=== PATIENT | female | born 1935 | race American Indian/Alaskan Native ===

== ENCOUNTER 2017-06-02 16:18 | Inpatient (IN) | payer MEDICARE ==
[2017-06-02] MEDS ORDERED: BABY ASPIRIN PO ONE (16:45)
[2017-06-02 17:47] LABS: Basophils % (Auto) 0.5 % (0.0-1.8); Eosinophils % (Auto) 0.1 % (0.0-4.3); Hematocrit 43.5 % (30.3-42.9); Mean Corpuscular HGB Conc 35 % (30-34); Mean Corpuscular Hemoglobin 32 pg (28-32); Mean Corpuscular Volume 91 fl (79-97); Platelet Count 253 K/mm3 (140-440); Red Blood Count 4.77 M/mm3 (3.65-5.03); Red Cell Distribution Width 12.5 % (13.2-15.2); White Blood Count 9.5 K/mm3 (4.5-11.0)
[2017-06-02 18:10] LABS: INR 0.95 (0.87-1.13)
[2017-06-02 18:11] LABS: Partial Thromboplastin Time 30.1 Sec. (24.2-36.6)
--- NOTE | 2017-06-02 18:49 | Emergency Department Report ---
ED General Adult HPI - General Chief complaint: Arrhythmia/Palpitations Stated complaint: HEART PALPATATIONS Time Seen by Provider: 06/02/17 16:40 Source: EMS Mode of arrival: Stretcher Limitations: Physical Limitation - History of Present Illness Initial comments: Patient is an 82-year-old female past medical history of SVT and hypertension who presents with heart palpitations. Patient states that she was feeling a funny feeling in her chest and she was short of breath. She then vomited. The vomit was nonbloody and nonbilious. Patient states that she is not in any pain but the severity of her palpitation at that time was moderate nothing made it worse or better. Patient also takes a daily aspirin. She was evaluated by her reservations clerk who sent her here for further evaluation due to an abnormal EKG. Patient really denies any chest pain at this time. But she is slightly short of breath. Severity scale (0 -10): 0 - Related Data Home Medications Medication Instructions Recorded Confirmed Last Taken ALBUTEROL Inhaler [Proair] 2 puff IH QID PRN 06/02/17 06/02/17 Unknown Aspirin 81 mg PO 06/02/17 Unknown Calcium Carbonate [Calcium] 500 mg PO 06/02/17 Unknown Diltiazem HCl [Diltiazem ER] 120 mg PO 06/02/17 Unknown Fluticasone [Flonase] 1 spray NS QDAY 06/02/17 06/02/17 Unknown Levothyroxine [Synthroid] 88 mcg PO QAM 06/02/17 06/02/17 Unknown Multivitamin Tab [Multiple Vitamin 1 each PO QDAY 06/02/17 06/02/17 Unknown TAB (Theragran)] Potassium Chloride [K-Dur] 10 meq PO QDAY 06/02/17 06/02/17 Unknown Psyllium Seed (with Sugar) 06/02/17 Unknown [Metamucil] Vit C/Ascorbate Ca/Ascorb Sod 500 mg PO 06/02/17 Unknown [Vitamin C 500 mg/15 ml Liquid] Vit D3/Folic Acid/B2/B6/B12 06/02/17 Unknown [Folgard Tablet] Vit E AC/Vit K1/Safflower Oil 06/02/17 Unknown [Vitamin E Oil-Vitamin K] Allergies Allergy/AdvReac Type Severity Reaction Status Date / Time No Known Allergies Allergy Unverified 06/02/17 17:01 ED Review of Systems ROS: Stated complaint: HEART PALPATATIONS Other details as noted in HPI Constitutional: denies: chills, fever Eyes: denies: eye pain, eye discharge, vision change ENT: denies: ear pain, throat pain Respiratory: shortness of breath. denies: cough, wheezing Cardiovascular: palpitations. denies: chest pain Endocrine: no symptoms reported Gastrointestinal: denies: abdominal pain, nausea, diarrhea Genitourinary: denies: urgency, dysuria, discharge Musculoskeletal: denies: back pain, joint swelling, arthralgia Skin: denies: rash, lesions Neurological: denies: headache, weakness, paresthesias Psychiatric: denies: anxiety, depression Hematological/Lymphatic: denies: easy bleeding, easy bruising ED Past Medical Hx - Past Medical History Hx Hypertension: Yes Hx Asthma: Yes Additional medical history: osteoarthritis, pancreatitis, neuropathy, hyperthyroidism, sleep apnea, sciatica, supraventicular tachycardia - Social History Smoking Status: Unknown if ever smoked Substance Use Type: None - Medications Home Medications: Home Medications Medication Instructions Recorded Confirmed Last Taken Type ALBUTEROL Inhaler [Proair] 2 puff IH QID PRN 06/02/17 06/02/17 Unknown History Aspirin 81 mg PO 06/02/17 Unknown History Calcium Carbonate [Calcium] 500 mg PO 06/02/17 Unknown History Diltiazem HCl [Diltiazem ER] 120 mg PO 06/02/17 Unknown History Fluticasone [Flonase] 1 spray NS QDAY 06/02/17 06/02/17 Unknown History Levothyroxine [Synthroid] 88 mcg PO QAM 06/02/17 06/02/17 Unknown History Multivitamin Tab [Multiple Vitamin 1 each PO QDAY 06/02/17 06/02/17 Unknown History TAB (Theragran)] Potassium Chloride [K-Dur] 10 meq PO QDAY 06/02/17 06/02/17 Unknown History Psyllium Seed (with Sugar) 06/02/17 Unknown History [Metamucil] Vit C/Ascorbate Ca/Ascorb Sod 500 mg PO 06/02/17 Unknown History [Vitamin C 500 mg/15 ml Liquid] Vit D3/Folic Acid/B2/B6/B12 06/02/17 Unknown History [Folgard Tablet] Vit E AC/Vit K1/Safflower Oil 06/02/17 Unknown History [Vitamin E Oil-Vitamin K] ED Physical Exam - General Limitations: Physical Limitation General appearance: alert, in no apparent distress - Head Head exam: Present: atraumatic, normocephalic - Eye Eye exam: Present: normal appearance - ENT ENT exam: Present: mucous membranes moist - Neck Neck exam: Present: normal inspection - Respiratory Respiratory exam: Present: normal lung sounds bilaterally. Absent: respiratory distress - Cardiovascular Cardiovascular Exam: Present: regular rate, normal rhythm, systolic murmur. Absent: diastolic murmur, rubs, gallop - GI/Abdominal GI/Abdominal exam: Present: soft, normal bowel sounds - Extremities Exam Extremities exam: Present: normal inspection - Back Exam Back exam: Present: normal inspection - Neurological Exam Neurological exam: Present: alert, oriented X3 - Psychiatric Psychiatric exam: Present: normal affect, normal mood - Skin Skin exam: Present: warm, dry, intact, normal color. Absent: rash ED Course Vital Signs 06/02/17 16:34 Temperature 97.8 F Pulse Rate 75 Respiratory 20 Rate Blood Pressure 182/87 O2 Sat by Pulse 99 Oximetry ED Medical Decision Making - Lab Data Result diagrams: 06/02/17 17:22 06/02/17 17:22 Lab Results 06/02/17 06/02/17 06/02/17 Range/Units 17:22 17:22 17:22 WBC 9.5 (4.5-11.0) K/mm3 RBC 4.77 (3.65-5.03) M/mm3 Hgb 15.0 H (10.1-14.3) gm/dl Hct 43.5 H (30.3-42.9) % MCV 91 (79-97) fl MCH 32 (28-32) pg MCHC 35 H (30-34) % RDW 12.5 L (13.2-15.2) % Plt Count 253 (140-440) K/mm3 Lymph % (Auto) 22.3 (13.4-35.0) % Jack % (Auto) 6.2 (0.0-7.3) % Eos % (Auto) 0.1 (0.0-4.3) % Baso % (Auto) 0.5 (0.0-1.8) % Lymph # 2.1 (1.2-5.4) K/mm3 Jack # 0.6 (0.0-0.8) K/mm3 Eos # 0.0 (0.0-0.4) K/mm3 Baso # 0.0 (0.0-0.1) K/mm3 Seg Neutrophils % 70.9 H (40.0-70.0) % Seg Neutrophils # 6.8 (1.8-7.7) K/mm3 PT 12.6 (12.2-14.9) Sec. INR 0.95 (0.87-1.13) APTT 30.1 (24.2-36.6) Sec. Sodium (137-145) mmol/L Potassium (3.6-5.0) mmol/L Chloride (98-107) mmol/L Carbon Dioxide (22-30) mmol/L Anion Gap mmol/L BUN (7-17) mg/dL Creatinine (0.7-1.2) mg/dL Estimated GFR ml/min BUN/Creatinine Ratio % Glucose (65-100) mg/dL Calcium (8.4-10.2) mg/dL Total Bilirubin (0.1-1.2) mg/dL AST (5-40) units/L ALT (7-56) units/L Alkaline Phosphatase (35-129) units/L Troponin T < 0.010 (0.00-0.029) ng/mL NT-Pro-B Natriuret Pep (0-900) pg/mL Total Protein (6.3-8.2) g/dL Albumin (3.9-5) g/dL Albumin/Globulin Ratio % 06/02/17 06/02/17 Range/Units 17:22 17:22 WBC (4.5-11.0) K/mm3 RBC (3.65-5.03) M/mm3 Hgb (10.1-14.3) gm/dl Hct (30.3-42.9) % MCV (79-97) fl MCH (28-32) pg MCHC (30-34) % RDW (13.2-15.2) % Plt Count (140-440) K/mm3 Lymph % (Auto) (13.4-35.0) % Jack % (Auto) (0.0-7.3) % Eos % (Auto) (0.0-4.3) % Baso % (Auto) (0.0-1.8) % Lymph # (1.2-5.4) K/mm3 Jack # (0.0-0.8) K/mm3 Eos # (0.0-0.4) K/mm3 Baso # (0.0-0.1) K/mm3 Seg Neutrophils % (40.0-70.0) % Seg Neutrophils # (1.8-7.7) K/mm3 PT (12.2-14.9) Sec. INR (0.87-1.13) APTT (24.2-36.6) Sec. Sodium 140 (137-145) mmol/L Potassium 4.5 (3.6-5.0) mmol/L Chloride 98.1 (98-107) mmol/L Carbon Dioxide 28 (22-30) mmol/L Anion Gap 18 mmol/L BUN 17 (7-17) mg/dL Creatinine 0.7 (0.7-1.2) mg/dL Estimated GFR > 60 ml/min BUN/Creatinine Ratio 24.28 % Glucose 109 H (65-100) mg/dL Calcium 9.6 (8.4-10.2) mg/dL Total Bilirubin 0.20 (0.1-1.2) mg/dL AST 41 H (5-40) units/L ALT 43 (7-56) units/L Alkaline Phosphatase 75 (35-129) units/L Troponin T (0.00-0.029) ng/mL NT-Pro-B Natriuret Pep 277.6 (0-900) pg/mL Total Protein 6.8 (6.3-8.2) g/dL Albumin 4.3 (3.9-5) g/dL Albumin/Globulin Ratio 1.7 % - EKG Data -: EKG Interpreted by Oh - EKG Data 06/02/17 20:00 Patient has normal sinus rhythm right bundle branch block no T wave inversion. - Radiology Data Radiology results: image reviewed Chest x-ray: Shows no acute cardiopulmonary disease. - Medical Decision Making Chief medical diagnosis: Non-STEMI Differential diagnosis: Pneumonia, pneumothorax, congestive heart failure, arrhythmia CBC, CMP, BNP, troponin, aspirin, EKG, chest x-ray Due to the patient being sent here by her reservations clerk and due to her age and risk factors. I will admit patient for an ACS rule out due to potential life- threatening arrhythmia. Discussed plan with patient and her daughter. They agree with plan. Critical care attestation.: If time is entered above; I have spent that time in minutes in the direct care of this critically ill patient, excluding procedure time. ED Disposition Clinical Impression: Palpitations, Shortness of breath Disposition: [id number] OP ADMIT IP TO THIS HOSP Is pt being admited?: No Does the pt Need Aspirin: No Condition: Stable Referrals: PRIMARY CARE, [Primary Care Provider] - 3-5 Days
[2017-06-02 19:30] LABS: Alanine Aminotransferase 43 units/L (7-56); Albumin 4.3 g/dL (3.9-5); Albumin/Globulin Ratio 1.7 %; Alkaline Phosphatase 75 units/L (35-129); Anion Gap 18 mmol/L; BUN/Creatinine Ratio 24.28; Blood Urea Nitrogen 17 mg/dL (7-17); Calcium 9.6 mg/dL (8.4-10.2); Carbon Dioxide 28 mmol/L (22-30); Chloride 98.1 mmol/L (98-107); Glucose 109 mg/dL (65-100); Potassium 4.5 mmol/L (3.6-5.0); Sodium 140 mmol/L (137-145); Total Protein 6.8 g/dL (6.3-8.2)
[2017-06-02] MEDS ORDERED: TYLENOL PO PRN (21:57)
[2017-06-02] MEDS ORDERED: ZOFRAN IV PRN (21:57)
[2017-06-02] MEDS ORDERED: DULCOLAX PR PRN (21:57)
[2017-06-02] MEDS ORDERED: MILK OF MAGNESIA PO PRN (21:57)
--- NOTE | 2017-06-02 21:57 | History and Physical Report ---
History of Present Illness Date of examination: 06/02/17 History of present illness: 82-year-old man with a history of hypertension, SVT, hypothyroidism, osteoarthritis instructed emergency room because he started having palpitation today lasting for 2 hours constantly. Also admits to shortness of breath, nausea and vomiting Review Of Systems: Constitutional: no weight loss Ears, eyes, nose, mouth and throat: no nasal congestion, no nasal discharge, no sinus pressure, blurry vision, diplopia Neck: No neck pain or rigidity. Cardiovascular: NO chest pain, orthopnea, palpitations Respiratory: No cough Gastrointestinal: abdominal pain, hematochezia Genitourinary : no dysuria, frequency , hematuria Musculoskeletal: no muscle ache Integumentary: no rash, no pruritis Neurological: no parathesias, focal weakness Endocrine: no cold or heat intolerance, no polyuria or polydipsia Hematologic/Lymphatic: no easy bruising, no easy bleeding, no gland swelling Allergic/Immunologic: no urticaria, no angioedema. PAST MEDICAL HISTORY: hypertension, SVT, hypothyroidism, osteoarthritis PAST SURGICAL HISTORY: Cholecystectomy FAMILY HISTORY: Hypertension SOCIAL HISTORY: Denies alcohol, tobacco, drugs Medications and Allergies Allergies Allergy/AdvReac Type Severity Reaction Status Date / Time No Known Allergies Allergy Unverified 06/02/17 17:01 Home Medications Medication Instructions Recorded Confirmed Last Taken Type ALBUTEROL Inhaler [Proair] 2 puff IH QID PRN 06/02/17 06/02/17 Unknown History Aspirin 81 mg PO QDAY 06/02/17 06/02/17 Unknown History Calcium Carbonate [Calcium] 500 mg PO QDAY 06/02/17 06/02/17 Unknown History Diltiazem HCl [Diltiazem ER] 120 mg PO QDAY 06/02/17 06/02/17 Unknown History Fluticasone [Flonase] 1 spray NS QDAY 06/02/17 06/02/17 Unknown History Levothyroxine [Synthroid] 88 mcg PO QAM 06/02/17 06/02/17 Unknown History Multivitamin Tab [Multiple Vitamin 1 each PO QDAY 06/02/17 06/02/17 Unknown History TAB (Theragran)] Potassium Chloride [K-Dur] 10 meq PO QDAY 06/02/17 06/02/17 Unknown History Vit C/Ascorbate Ca/Ascorb Sod 500 mg PO QDAY 06/02/17 06/02/17 Unknown History [Vitamin C 500 mg/15 ml Liquid] Exam - Physical Exam Narrative exam: Gen. appearance: Patient lying in bed in no acute distress HEENT: Normocephalic/atraumatic, pupils equal round reactive to light, extra alkaline movement intact, no scleral icterus, no JVD or thyromegaly or nodule, neck is supple, mucous membrane moist, no erythema or exudate Heart: S1-S2, regular rate and rhythm Lungs: Clear to auscultation bilateral breathing comfortable Abdomen: Positive bowel sounds, nontender, nondistended, no organomegaly Extremities: No edema, cyanosis, clubbing Neuro:: Oriented 3 , cranial nerves II-12 intact, speech, motor intact Skin: No rash, nodules, warm dry - Constitutional Vitals: Temp Pulse Resp BP Pulse Ox 97.8 F 75 20 182/87 99 06/02/17 16:34 06/02/17 16:34 06/02/17 16:34 06/02/17 16:34 06/02/17 16:34 Results - Labs CBC & Chem 7: 06/02/17 17:22 06/02/17 17:22 Labs: Abnormal lab results 06/02/17 06/02/17 Range/Units 17:22 17:22 Hgb 15.0 H (10.1-14.3) gm/dl Hct 43.5 H (30.3-42.9) % MCHC 35 H (30-34) % RDW 12.5 L (13.2-15.2) % Seg Neutrophils % 70.9 H (40.0-70.0) % Glucose 109 H (65-100) mg/dL AST 41 H (5-40) units/L - Imaging and Cardiology EKG: image reviewed Chest x-ray: image reviewed Assessment and Plan Assessment Palpitations Hypertension Hypothyroidism Plan Admit to medicine Check cardiac enzymes, d-dimer, consult cardiology Continue current outpatient medications DVT prophylaxis
[2017-06-02] MEDS ORDERED: APRESOLINE IV PRN (22:02)
[2017-06-02 22:54] LABS: Creatine Kinase MB 5.6 ng/mL (0.0-4.0)
--- NOTE | 2017-06-03 03:10 | Admit Criteria Form ---
Admission Criteria Documentation: TELEMETRY CARE Telemetry Admission Guidelines (Place 'X' for any and all applicable criteria): Admission to telemetry [A] may be indicated for ANY ONE of the following(1)(2)(3 )(4)(5): [X]I. Cardiac disease, including ANY ONE of the following (9)(10)(11)(12)(13 ): [ ]a) Postacute NJ [ ]b) Low-risk patients with ST-segment elevation NJ who have undergone successful percutaneous coronary intervention [ ]c) Unstable angina [ ]d) Suspected NJ (until it is ruled out) [ ]e) Post cardiac surgery (first 48 to 72 hours unless complications occur) [X]f) Acute arrhythmias (including significant tachycardia or bradycardia) [B] [ ]g) Firing of an implantable cardioverter defibrillator [C] [ ]h) Suspected pacemaker or implantable cardioverter defibrillator malfunction (10) [ ]i) New administration or adjustment of an antiarrhythmic drug [D ] [ ]j) Child admitted for acute congestive heart failure [ ]j) Long QT syndrome [ ]k) Advanced heart block (eg, second-degree Mobitz type II, third- degree heart block) [ ]l) Acute myocarditis or pericarditis [ ]m) Short-term (ambulatory or inpatient) monitoring after a cardiac procedure as indicated by ANY ONE of the following [E]: [ ]i) Electrophysiologic studies [ ]ii) Percutaneous coronary intervention with stent placement [ ]iii) Pacemaker placement with cardiac conduction defect [ ]iv) Implantable cardiac defibrillator placement [ ]II. Drug overdose or poisoning with substance that causes arrhythmias or QT prolongation (eg, phenothiazines, sympathomimetic agents, cyclic antidepressants, digitalis, antiarrhythmic drugs)(15) [ ]III. Short-term (ambulatory or inpatient) monitoring after therapeutic or diagnostic procedure requiring conscious sedation or anesthesia (eg, endoscopy, elective cardioversion) [ ]IV. Acute cerebrovascular even[F](18) [ ]V. Massive blood transfusion (eg, at least 10 units of packed red blood cells in 24 hours) [ ]. Variceal bleeding after endoscopy, sclerotherapy, or IV vasopressin [ ]VII. Uncorrected electrolyte abnormalities associated with an increased risk of dangerous arrhythmia [G]; examples include [ ]a) Hyperkalemia with attributable ECG changes [ ]b) Potassium greater than 6.5 mmol/L (mEq/L) in a patient without history of chronic renal disease [ ]c) Prolonged QT attributed to hypokalemia, hypomagnesemia, or hypocalcemia [ ]VIII.Unexplained syncope or other neurologic event suspected of being due to arrhythmia due to a finding that increases risk; examples include(19)(20)(21): [ ]a) High-risk ECG findings (eg, bifascicular block, bradycardia, abnormal QT interval, ventricular pre- excitation) [ ]b) History of previous syncope due to arrhythmia [ ]c) Abnormal ventricular function (eg, reduced ejection fraction ) [ ]d) Exertional or supine syncope [ ]e) Concerning syncope characteristics (eg, sudden loss of consciousness without prodrome) [ ]f) Family history of sudden [ ]g) Use of arrhythmogenic medication [ ]h) Suspected cardiac ischemia [ ]i) Known channelopathy (eg, long QT syndrome, Brugada syndrome, or catecholaminergic paroxysmal ventricular tachycardia) [ ]j) Known structural heart disease (eg, hypertrophic cardiomyopathy , severe valvular disease) [ ]k) Palpitations preceding syncope The original [employer] content created by [employer] has been revised. The portions of the content which have been revised are identified through the use of italic text or in bold, and [employer] has neither reviewed nor approved the modified material. All other unmodified content is copyright [employer]. Please see references footnoted in the original [employer] edition 2016 Admission Criteria Met: Yes
[2017-06-03] MEDS: SYNTHROID PO SCH (06:06)
[2017-06-03 07:25] LABS: Basophils % (Auto) 0.8 % (0.0-1.8); Eosinophils % (Auto) 1.6 % (0.0-4.3); Hemoglobin 14.1 gm/dl (10.1-14.3); Mean Corpuscular HGB Conc 34 % (30-34); Mean Corpuscular Hemoglobin 31 pg (28-32); Mean Corpuscular Volume 93 fl (79-97); Platelet Count 238 K/mm3 (140-440); Red Blood Count 4.52 M/mm3 (3.65-5.03); Red Cell Distribution Width 12.7 % (13.2-15.2); White Blood Count 8.9 K/mm3 (4.5-11.0)
[2017-06-03 07:42] LABS: Creatine Kinase MB 4.2 ng/mL (0.0-4.0)
[2017-06-03 07:48] LABS: Anion Gap 18 mmol/L; BUN/Creatinine Ratio 22.85; Blood Urea Nitrogen 16 mg/dL (7-17); Calcium 8.6 mg/dL (8.4-10.2); Carbon Dioxide 27 mmol/L (22-30); Chloride 101.1 mmol/L (98-107); Glucose 81 mg/dL (65-100); Potassium 3.9 mmol/L (3.6-5.0); Sodium 142 mmol/L (137-145)
--- NOTE | 2017-06-03 08:05 | XRay Report ---
ROUTINE CHEST, TWO VIEWS: HISTORY: chest pain. There is mild hyperinflation. The lungs are clear. No pleural effusion or pneumothorax. Heart and mediastinal structures are unremarkable. The thoracic cage is grossly intact. IMPRESSION: Mild hyperinflation, otherwise, unremarkable chest films.
[2017-06-03] MEDS ORDERED: CARDIZEM CD PO SCH (10:00)
--- NOTE | 2017-06-03 12:44 | Progress Note ---
Assessment and Plan Assessment and plan: 82F with pmh of htn, svt, hypothyroidism, presents with palpitations x2 days Hypertensive urgency -optimize BP meds -fup cardiology recs hypothyroidism TFTs wnl, continue synthroid hx of svt, now bradycardic -TFTs wnl -hold cardizem dvt ppx lovenox History Interval history: denies palpitations or chest pain at present, but she did have palpitations early this am RN reports that she had bradycardia as low as 30BPM Hospitalist Physical - Physical exam Narrative exam: General.: Appears well, no distress, nontoxic HEENT: Moist mucous membranes, extraocular muscles intact, no lymphadenopathy Neck: supple Cardiac: S1-S2 heard Lungs: clear to auscultation bilaterally Abdomen: soft , nontender, nondistended, bowel sounds positive Extremities: no edema clubbing or cyanosis Skin: no rash or lesions Neurologic: no gross focal deficits Psych: appropriate behavior, appropriate mood, corporative, judgment intact - Constitutional Vitals: Temp Pulse Resp BP Pulse Ox 98.7 F 55 L 20 185/81 98 06/03/17 05:50 06/03/17 09:35 06/03/17 05:50 06/03/17 05:50 06/03/17 09:35 Results - Labs CBC & Chem 7: 06/03/17 06:26 06/03/17 06:26 Labs: Laboratory Last Values WBC 8.9 K/mm3 (4.5-11.0) 06/03/17 06:26 RBC 4.52 M/mm3 (3.65-5.03) 06/03/17 06:26 Hgb 14.1 gm/dl (10.1-14.3) 06/03/17 06:26 Hct 42.0 % (30.3-42.9) 06/03/17 06:26 MCV 93 fl (79-97) 06/03/17 06:26 MCH 31 pg (28-32) 06/03/17 06:26 MCHC 34 % (30-34) 06/03/17 06:26 RDW 12.7 % (13.2-15.2) L 06/03/17 06:26 Plt Count 238 K/mm3 (140-440) 06/03/17 06:26 Lymph % (Auto) 49.5 % (13.4-35.0) H 06/03/17 06:26 [place] % (Auto) 8.7 % (0.0-7.3) H 06/03/17 06:26 Eos % (Auto) 1.6 % (0.0-4.3) 06/03/17 06:26 Baso % (Auto) 0.8 % (0.0-1.8) 06/03/17 06:26 Lymph # 4.4 K/mm3 (1.2-5.4) 06/03/17 06:26 [place] # 0.8 K/mm3 (0.0-0.8) 06/03/17 06:26 Eos # 0.1 K/mm3 (0.0-0.4) 06/03/17 06:26 Baso # 0.1 K/mm3 (0.0-0.1) 06/03/17 06:26 Seg Neutrophils % 39.4 % (40.0-70.0) L 06/03/17 06:26 Seg Neutrophils # 3.5 K/mm3 (1.8-7.7) 06/03/17 06:26 PT 12.6 Sec. (12.2-14.9) 06/02/17 17:22 INR 0.95 (0.87-1.13) 06/02/17 17:22 APTT 30.1 Sec. (24.2-36.6) 06/02/17 17:22 D-Dimer 214.15 ng/mlDDU (0-234) 06/02/17 22:09 Sodium 142 mmol/L (137-145) 06/03/17 06:26 Potassium 3.9 mmol/L (3.6-5.0) 06/03/17 06:26 Chloride 101.1 mmol/L (98-107) 06/03/17 06:26 Carbon Dioxide 27 mmol/L (22-30) 06/03/17 06:26 Anion Gap 18 mmol/L 06/03/17 06:26 BUN 16 mg/dL (7-17) 06/03/17 06:26 Creatinine 0.7 mg/dL (0.7-1.2) 06/03/17 06:26 Estimated GFR > 60 ml/min 06/03/17 06:26 BUN/Creatinine Ratio 22.85 % 06/03/17 06:26 Glucose 81 mg/dL (65-100) 06/03/17 06:26 Calcium 8.6 mg/dL (8.4-10.2) 06/03/17 06:26 Total Bilirubin 0.20 mg/dL (0.1-1.2) 06/02/17 17:22 AST 41 units/L (5-40) H 06/02/17 17:22 ALT 43 units/L (7-56) 06/02/17 17:22 Alkaline Phosphatase 75 units/L (35-129) 06/02/17 17:22 Total Creatine Kinase 119 units/L (30-135) 06/03/17 06:26 CK-MB (CK-2) 4.2 ng/mL (0.0-4.0) H 06/03/17 06:26 CK-MB (CK-2) Rel Index 3.5 (0-4) 06/03/17 06:26 Troponin T 0.013 ng/mL (0.00-0.029) 06/03/17 06:26 NT-Pro-B Natriuret Pep 277.6 pg/mL (0-900) 06/02/17 17:22 Total Protein 6.8 g/dL (6.3-8.2) 06/02/17 17:22 Albumin 4.3 g/dL (3.9-5) 06/02/17 17:22 Albumin/Globulin Ratio 1.7 % 06/02/17 17:22
[2017-06-03] MEDS: BABY ASPIRIN PO SCH (13:06)
[2017-06-03] MEDS: LOVENOX SUB-Q SCH (13:07)
[2017-06-03] MEDS: FLONASE NS SCH (13:07)
--- NOTE | 2017-06-03 17:30 | Consultation ---
History of Present Illness Consult date: 06/03/17 Consult reason: other (palpitations) History of present illness: The patient is an 82-year-old woman who presented to the hospital with intermittent palpitations. She is a patient of [facility], and describes a 3-4 year history of SVT. She states that she is currently on diltiazem. She has echocardiogram extensive cardiac workup in the past several years including stress test, echocardiogram and even a cardiac catheterization which the patient states have been unremarkable. The reports of the described workup is not available at the current time for review. Prior to presentation, her palpitations spontaneously resolved, and the ECG in emergency room was normal sinus rhythm with right bundle branch block and no ischemic changes. On telemetry so far, he has manifested a persistent sinus bradycardia, but no further SVT or tachycardia arrhythmia. Past History Past Medical History: other (supraventricular tachycardia) Medications and Allergies Allergies Allergy/AdvReac Type Severity Reaction Status Date / Time No Known Allergies Allergy Unverified 06/02/17 17:01 Home Medications Medication Instructions Recorded Confirmed Last Taken Type ALBUTEROL Inhaler [Proair] 2 puff IH QID PRN 06/02/17 06/02/17 Unknown History Aspirin 81 mg PO QDAY 06/02/17 06/02/17 Unknown History Calcium Carbonate [Calcium] 500 mg PO QDAY 06/02/17 06/02/17 Unknown History Diltiazem HCl [Diltiazem ER] 120 mg PO QDAY 06/02/17 06/02/17 Unknown History Fluticasone [Flonase] 1 spray NS QDAY 06/02/17 06/02/17 Unknown History Levothyroxine [Synthroid] 88 mcg PO QAM 06/02/17 06/02/17 Unknown History Multivitamin Tab [Multiple Vitamin 1 each PO QDAY 06/02/17 06/02/17 Unknown History TAB (Theragran)] Potassium Chloride [K-Dur] 10 meq PO QDAY 06/02/17 06/02/17 Unknown History Vit C/Ascorbate Ca/Ascorb Sod 500 mg PO QDAY 06/02/17 06/02/17 Unknown History [Vitamin C 500 mg/15 ml Liquid] Active Meds: Active Medications Acetaminophen (Tylenol) 650 mg PO Q4H PRN PRN Reason: Pain MILD(1-3)/Fever >100.5/FLORIAN Aspirin (Baby Aspirin) 81 mg PO DAILY [facility] Last Admin: 06/03/17 13:06 Dose: 81 mg Bisacodyl (Dulcolax) 10 mg DC QDAY PRN PRN Reason: Constipation unrelieved by MOM Calcium Carbonate/Glycine (Oscal) 500 mg PO QDAY [facility] Diltiazem HCl (Cardizem Cd) 120 mg PO DAILY [facility] Last Admin: 06/03/17 13:06 Dose: 120 mg Enoxaparin Sodium (Lovenox) 40 mg SUB-Q QDAY [facility] Last Admin: 06/03/17 13:07 Dose: 40 mg Fluticasone Propionate (Flonase) 50 mcg NS QDAY [facility] Last Admin: 06/03/17 13:07 Dose: 50 mcg Hydralazine HCl (Apresoline) 10 mg IV Q6H PRN PRN Reason: Hypertension Levothyroxine Sodium (Synthroid) 88 mcg PO QAM@0600 [facility] Last Admin: 06/03/17 06:06 Dose: 88 mcg Magnesium Hydroxide (Milk Of Magnesia) 30 ml PO Q4H PRN PRN Reason: Constipation Ondansetron HCl (Zofran) 4 mg IV Q8H PRN PRN Reason: N/V unrelieved by Reglan Valsartan (Diovan) 160 mg PO BID [facility] Review of Systems Cardiovascular: palpitations, rapid/irregular heart beat, no chest pain, no orthopnea, no edema, no syncope, no lightheadedness, no shortness of breath Physical Examination Vital Signs Temp Pulse Resp BP Pulse Ox 97.8 F 75 20 182/87 99 06/02/17 16:34 06/02/17 16:34 06/02/17 16:34 06/02/17 16:34 06/02/17 16:34 General appearance: no acute distress HEENT: Positive: PERRL Neck: Positive: neck supple Cardiac: Positive: Reg Rate and Rhythm Lungs: Positive: clear to auscultation Neuro: Positive: Grossly Intact Abdomen: Positive: Soft Female genitourinary: deferred Skin: Positive: Clear Extremities: Absent: edema Results 06/03/17 06:26 06/03/17 06:26 Cardiac Enzymes 06/02/17 06/03/17 Range/Units 22:09 06:26 CK-MB (CK-2) 5.6 H 4.2 H (0.0-4.0) ng/mL CBC 06/03/17 Range/Units 06:26 WBC 8.9 (4.5-11.0) K/mm3 RBC 4.52 (3.65-5.03) M/mm3 Hgb 14.1 (10.1-14.3) gm/dl Hct 42.0 (30.3-42.9) % Plt Count 238 (140-440) K/mm3 Lymph # 4.4 (1.2-5.4) K/mm3 [place] # 0.8 (0.0-0.8) K/mm3 Eos # 0.1 (0.0-0.4) K/mm3 Baso # 0.1 (0.0-0.1) K/mm3 Comprehensive Metabolic Panel 06/03/17 Range/Units 06:26 Sodium 142 (137-145) mmol/L Potassium 3.9 (3.6-5.0) mmol/L Chloride 101.1 (98-107) mmol/L Carbon Dioxide 27 (22-30) mmol/L BUN 16 (7-17) mg/dL Creatinine 0.7 (0.7-1.2) mg/dL Glucose 81 (65-100) mg/dL Calcium 8.6 (8.4-10.2) mg/dL EKG interpretations - Telemetry EKG Rhythm: Sinus Rhythm Assessment and Plan - Patient Problems (1) Palpitations Current Visit: Yes Status: Acute Plan to address problem: The patient describes a history of paroxysmal supraventricular tachycardia, likely responsible for her current palpitations. Her palpitations have recurred despite diltiazem therapy. In addition, he has been marked sinus bradycardia while in the hospital, suggesting some concern for sick sinus syndrome. We will get an echocardiogram for left ventricle function assessment. A TSH level is normal. We will get outpatient records from [facility] for review of previous ischemic workup. Further cardiac evaluation and management will depend on clinical course.
[2017-06-04] MEDS: SYNTHROID PO SCH (08:32)
[2017-06-04] MEDS: DIOVAN PO SCH ×2 (09:19→21:25)
[2017-06-04] MEDS: OSCAL PO SCH (09:20)
[2017-06-04] MEDS: BABY ASPIRIN PO SCH (09:20)
[2017-06-04] MEDS: APRESOLINE IV PRN ×2 (09:27→18:30)
[2017-06-04] MEDS: LOVENOX SUB-Q SCH (09:28)
[2017-06-04] MEDS: FLONASE NS SCH (09:38)
[2017-06-04] MEDS ORDERED: VIT C PO SCH (10:00)
[2017-06-04] MEDS ORDERED: ASCORBATE CA PO SCH (10:00)
[2017-06-04] MEDS ORDERED: ASCORB SOD PO SCH (10:00)
--- NOTE | 2017-06-04 13:58 | Progress Note ---
Assessment and Plan Assessment and plan: Patient is a 82-year-old woman with pmh of htn, asthma, who is an ex-smoker quit 40 years ago, svt and hypothyroidism, presents with palpitations x2 days Hypertensive urgency -optimize BP meds -fup cardiology recs==>echo pending Bradycardia Cardizem stopped but now blood pressures uncontrolled, added Norvasc hypothyroidism TFTs wnl, continue synthroid p. svt, now bradycardic -TFTs wnl -hold cardizem -?sick sinus, Cardiology is following dvt ppx lovenox Disposition once BP is controlled and cleared by Cardiology to be discharged History Interval history: Patient was seen and examined. Follow-up on current diagnosis/palpitation which comes and goes. Overnight uneventful. Patient denies any chest pain, shortness breath, nausea/vomiting or severe headaches. Imaging, nursing note, chart, labs and old chart reviewed. Discussed with patient. Hospitalist Physical - Physical exam Narrative exam: GEN: WDWN, NAD, AWAKE, ALERT, ORIENTATED 3 HEENT: NCAT, EOMI, PERRL, OP Clear NECK: supple, no adenopathy, no thyromegaly, no JVD CVS/HEART: RRR, NORMAL S1S2, NO JVD, pulses present bilaterally CHEST/LUNGS: CTA B, Symmetrical chest expansion, good air entry bilaterally GI/Abdomen: soft, NTND, good bowel sounds, no guarding or rebound /Bladder: no suprapubic tenderness, no CVA or paraspinal tenderness EXT/Skin: no c/c/e, no significant edema or obvious rash MSK: FROM x 4 Neuro: CN 2-12 grossly intact, no new focal deficits Psych: calm - Constitutional Vitals: Temp Pulse Resp BP Pulse Ox 97.2 F L 64 20 178/74 96 06/04/17 09:00 06/04/17 09:27 06/04/17 09:27 06/04/17 09:27 06/04/17 10:45 General appearance: Present: no acute distress Results - Labs CBC & Chem 7: 06/03/17 06:26 06/03/17 06:26 Labs: Laboratory Last Values WBC 8.9 K/mm3 (4.5-11.0) 06/03/17 06:26 RBC 4.52 M/mm3 (3.65-5.03) 06/03/17 06:26 Hgb 14.1 gm/dl (10.1-14.3) 06/03/17 06:26 Hct 42.0 % (30.3-42.9) 06/03/17 06:26 MCV 93 fl (79-97) 06/03/17 06:26 MCH 31 pg (28-32) 06/03/17 06:26 MCHC 34 % (30-34) 06/03/17 06:26 RDW 12.7 % (13.2-15.2) L 06/03/17 06:26 Plt Count 238 K/mm3 (140-440) 06/03/17 06:26 Lymph % (Auto) 49.5 % (13.4-35.0) H 06/03/17 06:26 [place] % (Auto) 8.7 % (0.0-7.3) H 06/03/17 06:26 Eos % (Auto) 1.6 % (0.0-4.3) 06/03/17 06:26 Baso % (Auto) 0.8 % (0.0-1.8) 06/03/17 06:26 Lymph # 4.4 K/mm3 (1.2-5.4) 06/03/17 06:26 [place] # 0.8 K/mm3 (0.0-0.8) 06/03/17 06:26 Eos # 0.1 K/mm3 (0.0-0.4) 06/03/17 06:26 Baso # 0.1 K/mm3 (0.0-0.1) 06/03/17 06:26 Seg Neutrophils % 39.4 % (40.0-70.0) L 06/03/17 06:26 Seg Neutrophils # 3.5 K/mm3 (1.8-7.7) 06/03/17 06:26 PT 12.6 Sec. (12.2-14.9) 06/02/17 17:22 INR 0.95 (0.87-1.13) 06/02/17 17:22 APTT 30.1 Sec. (24.2-36.6) 06/02/17 17:22 D-Dimer 214.15 ng/mlDDU (0-234) 06/02/17 22:09 Sodium 142 mmol/L (137-145) 06/03/17 06:26 Potassium 3.9 mmol/L (3.6-5.0) 06/03/17 06:26 Chloride 101.1 mmol/L (98-107) 06/03/17 06:26 Carbon Dioxide 27 mmol/L (22-30) 06/03/17 06:26 Anion Gap 18 mmol/L 06/03/17 06:26 BUN 16 mg/dL (7-17) 06/03/17 06:26 Creatinine 0.7 mg/dL (0.7-1.2) 06/03/17 06:26 Estimated GFR > 60 ml/min 06/03/17 06:26 BUN/Creatinine Ratio 22.85 % 06/03/17 06:26 Glucose 81 mg/dL (65-100) 06/03/17 06:26 Calcium 8.6 mg/dL (8.4-10.2) 06/03/17 06:26 Total Bilirubin 0.20 mg/dL (0.1-1.2) 06/02/17 17:22 AST 41 units/L (5-40) H 06/02/17 17:22 ALT 43 units/L (7-56) 06/02/17 17:22 Alkaline Phosphatase 75 units/L (35-129) 06/02/17 17:22 Total Creatine Kinase 119 units/L (30-135) 06/03/17 06:26 CK-MB (CK-2) 4.2 ng/mL (0.0-4.0) H 06/03/17 06:26 CK-MB (CK-2) Rel Index 3.5 (0-4) 06/03/17 06:26 Troponin T 0.013 ng/mL (0.00-0.029) 06/03/17 06:26 NT-Pro-B Natriuret Pep 277.6 pg/mL (0-900) 06/02/17 17:22 Total Protein 6.8 g/dL (6.3-8.2) 06/02/17 17:22 Albumin 4.3 g/dL (3.9-5) 06/02/17 17:22 Albumin/Globulin Ratio 1.7 % 06/02/17 17:22 TSH 3.500 mlU/mL (0.270-4.200) 06/03/17 12:15 Free T4 1.51 ng/dL (0.76-1.46) H 06/03/17 12:15 Thyroxine (T4) 7.0 ug/dL (4.0-12.0) 06/03/17 12:15
[2017-06-04] MEDS ORDERED: PROAIR IH SCH (14:00)
--- NOTE | 2017-06-04 14:36 | Progress Note ---
Assessment and Plan - Patient Problems (1) Palpitations Current Visit: Yes Status: Acute Plan to address problem: The patient describes a history of paroxysmal supraventricular tachycardia, likely responsible for her current palpitations. Her palpitations have recurred despite diltiazem therapy. In addition, he has been marked sinus bradycardia while in the hospital, suggesting some concern for sick sinus syndrome. We will get an echocardiogram for left ventricle function assessment. A TSH level is normal. We will get outpatient records from [place] for review of previous ischemic workup. Further cardiac evaluation and management will depend on clinical course. Subjective Date of service: 06/04/17 Interval history: Patient has no further palpitations, no new cardiac complaints. No significant tachyarrhythmias on telemetry monitoring. Objective Vital Signs Temp Pulse Resp BP Pulse Ox 06/04/17 12:54 72 135/63 98 06/04/17 10:45 96 06/04/17 09:27 64 20 178/74 06/04/17 09:00 97.2 F L 62 06/04/17 06:17 98.1 F 62 18 199/88 96 06/04/17 00:33 98.6 F 66 18 172/90 96 06/03/17 20:30 98.7 F 59 L 18 157/76 97 - Physical Examination General: Appears Well, No Apparent Distress HEENT: Positive: PERRL Neck: Positive: neck supple Cardiac: Positive: Reg Rate and Rhythm Lungs: Positive: Decreased Breath Sounds Neuro: Positive: Grossly Intact Abdomen: Positive: Soft Skin: Positive: Clear Extremities: Absent: edema - Imaging and Cardiology EKG: image reviewed
[2017-06-04] MEDS: NORVASC PO SCH (16:21)
[2017-06-05] MEDS: SYNTHROID PO SCH (05:53)
--- NOTE | 2017-06-05 08:58 | Discharge Summary ---
Providers - Providers Date of Admission: 06/02/17 21:57 Date of discharge: 06/05/17 Attending physician: DAINA TINOCO Primary care physician: LIA VICK MD Hospitalization Condition: Stable Hospital course: Patient is a 82-year-old woman with pmh of htn, asthma, who is an ex-smoker quit 40 years ago, svt and hypothyroidism, presents with palpitations x2 days Hypertensive urgency -optimize BP meds -fup cardiology recs==>echo pending Bradycardia Cardizem stopped but now blood pressures uncontrolled, added Norvasc hypothyroidism TFTs wnl, continue synthroid p. svt, now bradycardic -TFTs wnl, normal TSH -hold cardizem -?sick sinus, Cardiology is following Hypothyroidism: normal tsh, high free T4 (on synthroid), just repeat tsh in 2-4 weeks as outpatient. dvt ppx lovenox Disposition once BP is controlled and cleared by Cardiology to be discharged Disposition: DC-01 TO HOME OR SELFCARE Time spent for discharge: 33 min Core Measure Documentation - Palliative Care Palliative Care/ Comfort Measures: Not Applicable - Core Measures Any of the following diagnoses?: none Exam - Constitutional Vitals: Temp Pulse Resp BP Pulse Ox 98.4 F 70 18 158/69 96 06/05/17 04:04 06/05/17 04:04 06/05/17 04:04 06/05/17 04:04 06/05/17 04:04 Plan Follow up with: PRIMARY CAREMD [Primary Care Provider] - 3-5 Days Prescriptions: amLODIPine [Norvasc] 10 mg PO QDAY #30 tablet Valsartan [Diovan] 160 mg PO BID #60 tablet
[2017-06-05] MEDS: FLONASE NS SCH (09:27)
[2017-06-05] MEDS: DIOVAN PO SCH (09:28)
[2017-06-05] MEDS: OSCAL PO SCH (09:28)
[2017-06-05] MEDS: BABY ASPIRIN PO SCH (09:29)
[2017-06-05] MEDS: NORVASC PO SCH (09:29)
[2017-06-05] MEDS: LOVENOX SUB-Q SCH (09:29)
[2017-06-05] MEDS ORDERED: PROVENTIL IH PRN (10:00)
[2017-06-05 10:04] VITALS: BP 168/71
--- NOTE | 2017-06-05 12:50 | Progress Note ---
Assessment and Plan Palpitations History of paroxysmal supraventricular tachycardia likely responsible for her current palpitations. Diltiazem discontinued due to marked sinus bradycardia, suggesting some concern for sick sinus syndrome. Hypothyroidism normal TSH Subjective Date of service: 06/05/17 Interval history: Patient reports she is feeling better. She denies palpitations. No events on telemetry overnight. Objective Vital Signs Temp Pulse Resp BP Pulse Ox 06/05/17 08:59 97.6 F 20 168/71 06/05/17 04:04 98.4 F 70 18 158/69 96 06/04/17 23:42 98.6 F 71 20 155/77 96 06/04/17 21:25 65 150/62 06/04/17 19:24 98.0 F 65 18 150/62 98 06/04/17 17:57 179/81 06/04/17 17:48 61 183/82 97 06/04/17 15:00 53 L 06/04/17 12:54 72 135/63 98 - Physical Examination General: Appears Well HEENT: Positive: PERRL Cardiac: Positive: Reg Rate and Rhythm Lungs: Positive: Decreased Breath Sounds Neuro: Positive: Grossly Intact Extremities: Absent: edema - Imaging and Cardiology EKG: image reviewed
--- NOTE | 2017-06-05 12:53 | Progress Note ---
Assessment and Plan Paroxysmal SVT - resolved Currently in [facility] Normal LVEF by echo Systemic Hypertension Sinus bradycardia Hypothyroidism Elevated free T4 Recommendations: Patient follows with Dr Mitchell (EP from [facility]) She is asymptomatic and therefore is able to follow-up with her primary informatics pharmacist as outpatient She was advised to see her primary informatics pharmacist within 1 week of discharge Consider decreasing thyroxine dose to 75 mcg per day No further inpatient work-up is needed Subjective Date of service: 06/05/17 Principal diagnosis: PSVT Interval history: Patient denies chest pain, shortness of breath or palpitations Objective Vital Signs Temp Pulse Resp BP Pulse Ox 06/05/17 08:59 97.6 F 20 168/71 06/05/17 04:04 98.4 F 70 18 158/69 96 06/04/17 23:42 98.6 F 71 20 155/77 96 06/04/17 21:25 65 150/62 06/04/17 19:24 98.0 F 65 18 150/62 98 06/04/17 17:57 179/81 06/04/17 17:48 61 183/82 97 06/04/17 15:00 53 L 06/04/17 12:54 72 135/63 98 - Physical Examination General: Appears Well, No Apparent Distress HEENT: Positive: PERRL Neck: Positive: neck supple Cardiac: Positive: Reg Rate and Rhythm Lungs: Positive: Normal Exam Neuro: Positive: Grossly Intact Abdomen: Positive: Soft Skin: Positive: Clear Extremities: Absent: edema - Imaging and Cardiology EKG: image reviewed
== END 2017-06-05 12:30 | disposition home or self-care (01) | DRG 305 ==
LOC: ED 16:18 → 4A 21:57
PROVIDERS: ADMIT Internal Medicine; ATTEND Internal Medicine
DX: I16.0 Hypertensive urgency (principal); I47.1 Supraventricular tachycardia; R00.2 Palpitations; E03.9 Hypothyroidism, unspecified; R00.1 Bradycardia, unspecified; M19.90 Unspecified osteoarthritis, unspecified site; G62.9 Polyneuropathy, unspecified; J45.909 Unspecified asthma, uncomplicated; I10 Essential (primary) hypertension; Z79.82 Long term (current) use of aspirin; Z79.899 Other long term (current) drug therapy; Z90.49 Acquired absence of other specified parts of digestive tract; Z82.49 Family history of ischemic heart disease and other diseases of the circulatory system; Z87.891 Personal history of nicotine dependence
CPT/HCPCS: 36415; 71020; 80048; 80053; 82550; 82553; 83880; 84436; 84439; 84443; 84484; 85025; 85379; 85610; 85730; 93005; 93010; 93306; J0360; J1650

== ENCOUNTER 2022-01-26 09:23 | Inpatient (IN) | payer MEDICARE ==
[2022-01-26] MEDS ORDERED: ACETAMINOPHEN 500 MG TAB PO ONE (11:22)
--- NOTE | 2022-01-26 11:25 | Emergency Department Report ---
ED General Adult HPI - General Chief complaint: Extremity Injury, Lower Stated complaint: Syncope, right hip pain Time Seen by Provider: 01/26/22 11:08 Source: patient, family, EMS ( EMS documentation not available at time of chart dictation ), RN notes reviewed Mode of arrival: Stretcher Limitations: Physical Limitation - History of Present Illness Initial comments: Primary CARE doctor: Rolly mendez. This is an 86-year-old female, with an atrial pacer in situ, hypothyroidism, hypertension, arthritis, chronic glaucoma, presenting to the ER today with a complaint of painless loss of consciousness, without precipitating events, happened while standing up in the kitchen, landing on her right hand side, complaining of right-sided hip pain. Reports that her blood pressure medications were recently decreased in dosage, but does not specifically recall which medication. Currently denies headache, neck pain, chest pain, abdominal pain, shortness of breath, dysuria. She denies extremity weakness and numbness. She denies travel, surgery, DVT/PE risk factors. She reports that she has episodes of "syncope" every few months She indicates that she feels like she is back to her baseline at this time. Denies hematemesis and bright red blood per rectum -: Sudden, This morning Location: right, lower extremity Severity scale (0 -10): 0 Quality: aching Consistency: constant Improves with: rest Worsens with: movement - Related Data Home Medications Medication Instructions Recorded Confirmed Last Taken Albuterol Mdi (or & Nicu Only) 2 puff IH QID PRN 06/02/17 06/02/17 Unknown [ProAir HFA Inhaler] Aspirin 81 mg PO QDAY 06/02/17 06/02/17 Unknown Calcium Carbonate [Calcium] 500 mg PO QDAY 06/02/17 06/02/17 Unknown Fluticasone [Flonase] 1 spray NS QDAY 06/02/17 06/02/17 Unknown Multivitamin Tab [Multiple Vitamin 1 each PO QDAY 06/02/17 06/02/17 Unknown TAB (Theragran)] Potassium Chloride [K-Dur] 10 meq PO QDAY 06/02/17 06/02/17 Unknown Vit C/Ascorbate Calcium,Sodium 500 mg PO QDAY 06/02/17 06/02/17 Unknown [Vitamin C 500 mg/15 ml Liquid] Previous Rx's Medication Instructions Recorded Last Taken Type Levothyroxine [Synthroid] 88 mcg PO QAM@0600 tablet 06/05/17 Unknown Rx Valsartan [Diovan] 160 mg PO BID #60 tablet 06/05/17 Unknown Rx amLODIPine 10 mg PO QDAY #30 tablet 06/05/17 Unknown Rx Allergies Allergy/AdvReac Type Severity Reaction Status Date / Time No Known Allergies Allergy Unverified 01/26/22 09:51 ED Review of Systems ROS: Stated complaint: RT HIP PAIN/GROUND LEVEL FALL Other details as noted in HPI Constitutional: denies: fever Eyes: denies: eye discharge ENT: denies: epistaxis Respiratory: denies: cough Cardiovascular: syncope. denies: chest pain Gastrointestinal: denies: abdominal pain, hematemesis, melena, hematochezia Genitourinary: denies: dysuria Musculoskeletal: joint swelling, arthralgia, myalgia Neurological: weakness (Generalized weakness). denies: numbness, paresthesias ED Past Medical Hx - Past Medical History Hx Hypertension: Yes Hx Arthritis: Yes Hx Asthma: Yes Additional medical history: osteoarthritis, pancreatitis, neuropathy, hyperthyroidism, sleep apnea, sciatica, supraventicular tachycardia - Surgical History Hx Cholecystectomy: Yes - Social History Smoking Status: Never Smoker - Medications Home Medications: Home Medications Medication Instructions Recorded Confirmed Last Taken Type Albuterol Mdi (or & Nicu Only) 2 puff IH QID PRN 06/02/17 06/02/17 Unknown History [ProAir HFA Inhaler] Aspirin 81 mg PO QDAY 06/02/17 06/02/17 Unknown History Calcium Carbonate [Calcium] 500 mg PO QDAY 06/02/17 06/02/17 Unknown History Fluticasone [Flonase] 1 spray NS QDAY 06/02/17 06/02/17 Unknown History Multivitamin Tab [Multiple Vitamin 1 each PO QDAY 06/02/17 06/02/17 Unknown History TAB (Theragran)] Potassium Chloride [K-Dur] 10 meq PO QDAY 06/02/17 06/02/17 Unknown History Vit C/Ascorbate Calcium,Sodium 500 mg PO QDAY 06/02/17 06/02/17 Unknown History [Vitamin C 500 mg/15 ml Liquid] Levothyroxine [Synthroid] 88 mcg PO QAM@0600 tablet 06/05/17 Unknown Rx Valsartan [Diovan] 160 mg PO BID #60 tablet 06/05/17 Unknown Rx amLODIPine 10 mg PO QDAY #30 tablet 06/05/17 Unknown Rx ED Physical Exam - General Limitations: Physical Limitation General appearance: alert, in no apparent distress - Head Head exam: Present: atraumatic, normocephalic - Eye Eye exam: Present: normal appearance, EOMI. Absent: nystagmus - ENT ENT exam: Present: normal exam, normal orophraynx, mucous membranes moist, normal external ear exam - Neck Neck exam: Present: normal inspection, full ROM. Absent: tenderness, meningismus - Respiratory Respiratory exam: Present: normal lung sounds bilaterally. Absent: respiratory distress, wheezes, rales, rhonchi, stridor, decreased breath sounds - Cardiovascular Cardiovascular Exam: Present: regular rate, normal rhythm, normal heart sounds. Absent: bradycardia, tachycardia, irregular rhythm, systolic murmur, diastolic murmur, rubs, gallop - GI/Abdominal GI/Abdominal exam: Present: soft. Absent: distended, tenderness, rigid, pulsatile mass - Extremities Exam Extremities exam: Present: normal inspection, tenderness (There is point tenderness to the right hip. The femur itself is not tender distally. The right knee is tender), other (2+ pulses noted in the bilateral upper and lower extremities. Upper extremities nontender. Left lower extremity nontender). Absent: calf tenderness - Back Exam Back exam: Present: normal inspection. Absent: tenderness, CVA tenderness (L), paraspinal tenderness, vertebral tenderness - Neurological Exam Neurological exam: Present: alert, oriented X3, other (No facial droop. Tongue midline. Extraocular movements intact bilaterally. Facial sensation intact to light touch in V1, V2, V3 distribution bilaterally. 5 and a 5 strength in 4 extremities. Sensation intact to light touch in 4 extremities.). Absent: motor sensory deficit - Psychiatric Psychiatric exam: Present: normal affect, normal mood - Skin Skin exam: Present: warm, dry, intact, normal color. Absent: rash ED Course Vital Signs 01/26/22 01/26/22 01/26/22 09:47 11:03 12:46 Temperature 98.6 F 98.9 F Pulse Rate 60 85 74 Respiratory 18 18 18 Rate Blood Pressure 145/63 Blood Pressure 160/84 160/61 [Left] O2 Sat by Pulse 98 99 99 Oximetry - Reevaluation(s) Reevaluation #1: 01/26/22 13:11 Differential diagnosis, including but not limited to: Orthostasis, vagal event, structural cardiac disease, intracranial injury, hip fracture, hip dislocation, arthritis, pneumonia, UTI, CAD, electrolyte derangement, atrial pacemaker failure Assessment and plan: 86-year-old elderly female with multiple chronic medical conditions, presenting to the ER today with a primary complaint of syncope, subsequent complaint of right hip pain and right leg pain. She is afebrile, with reassuring vital signs, clinically sober, with no midline cervical spine pain, tenderness or step-offs. Her EKG shows an atrial paced rhythm, and it is a [employer] pacemaker device. Contacted [employer] device strategic partnership representative, and nursing team is able to transmit device interrogation while here in the emergency room. Device strategic partnership representative calls me back and states that on January 22, patient had a 3-second episode of high ventricular rate, and on December 25, had a 2-second episode, with high ventricular rates. However, he reports that today's interrogation shows no acute events today. Thus far, laboratory studies are unremarkable. Chest x-ray, pelvis x-ray and right knee x-rays unremarkable for emergent findings. Given advanced age and fall, we obtain CT scan of the brain and pelvis, and we are awaiting these results. This patient has yet to provide a urine sample, but she denies dysuria. This patient is a [facility] patient. Have asked the deployment manager to reach out to the [facility], so I may discuss this patient's care with their coordinating physician. I did discuss this plan of care with the patient and her daughter, who articulated understanding. I am currently awaiting formal CT scan brain and pelvis interpretation, as well as callback from the [facility] network. I do not appreciate a bleed on the noncontrast CT scan of the brain. 01/26/22 13:30 Contacted [facility] physician, Dr. Mendoza Discussed the patient's history, physical, laboratory studies imaging studies and clinical impression. Patient prefers to be admitted to this hospital. The [facility] physician authorizes this patient to be admitted to this hospital. I discussed significance of findings with patient and daughter, and discussed medical rationale for admission. They verbalized understanding, and they are agreeable to admission. Hospital physician, Dr. Valdez to admit to [facility] - Consultations Consultation #1: 01/26/22 16:01 I discussed the patient's history, physical, imaging studies and clinical impression with orthopedics on-call, Dr. Renteria. He advises that this sort of sacral fracture is managed conservatively and does not require emergent operativ e intervention or emergent orthopedic evaluation. Therefore, if the medical team has any further questions, they can consult orthopedics as needed. ED Medical Decision Making - Lab Data Result diagrams: 01/26/22 12:05 01/26/22 12:05 Vital Signs 01/26/22 01/26/22 09:47 11:03 Temperature 98.6 F 98.9 F Pulse Rate 60 85 Respiratory 18 18 Rate Blood Pressure 145/63 Blood Pressure 160/84 [Left] O2 Sat by Pulse 98 99 Oximetry Lab Results 01/26/22 01/26/22 Range/Units 12:05 12:05 WBC 6.6 (4.5-11.0) K/mm3 RBC 4.64 (3.65-5.03) M/mm3 Hgb 14.8 H (10.1-14.3) gm/dl Hct 44.4 H (30.3-42.9) % MCV 96 (79-97) fl MCH 32 (28-32) pg MCHC 33 (30-34) % RDW 12.6 L (13.2-15.2) % Plt Count 274 (140-440) K/mm3 Lymph % (Auto) 16.0 (13.4-35.0) % [place] % (Auto) 13.0 H (0.0-7.3) % Eos % (Auto) 2.1 (0.0-4.3) % Baso % (Auto) 0.6 (0.0-1.8) % Lymph # (Auto) 1.1 L (1.2-5.4) K/mm3 [place] # (Auto) 0.9 H (0.0-0.8) K/mm3 Eos # (Auto) 0.1 (0.0-0.4) K/mm3 Baso # (Auto) 0.0 (0.0-0.1) K/mm3 Seg Neutrophils % 68.3 (40.0-70.0) % Seg Neutrophils # 4.5 (1.8-7.7) K/mm3 PT 12.5 (12.2-14.9) Sec. INR 0.85 L (0.87-1.13) Lab Results 01/26/22 01/26/22 01/26/22 Range/Units 12:05 12:05 12:05 WBC 6.6 (4.5-11.0) K/mm3 RBC 4.64 (3.65-5.03) M/mm3 Hgb 14.8 H (10.1-14.3) gm/dl Hct 44.4 H (30.3-42.9) % MCV 96 (79-97) fl MCH 32 (28-32) pg MCHC 33 (30-34) % RDW 12.6 L (13.2-15.2) % Plt Count 274 (140-440) K/mm3 Lymph % (Auto) 16.0 (13.4-35.0) % [place] % (Auto) 13.0 H (0.0-7.3) % Eos % (Auto) 2.1 (0.0-4.3) % Baso % (Auto) 0.6 (0.0-1.8) % Lymph # (Auto) 1.1 L (1.2-5.4) K/mm3 [place] # (Auto) 0.9 H (0.0-0.8) K/mm3 Eos # (Auto) 0.1 (0.0-0.4) K/mm3 Baso # (Auto) 0.0 (0.0-0.1) K/mm3 Seg Neutrophils % 68.3 (40.0-70.0) % Seg Neutrophils # 4.5 (1.8-7.7) K/mm3 PT 12.5 (12.2-14.9) Sec. INR 0.85 L (0.87-1.13) Sodium 136 L (137-145) mmol/L Potassium 4.1 (3.6-5.0) mmol/L Chloride 99.5 (98-107) mmol/L Carbon Dioxide 23 (22-30) mmol/L Anion Gap 18 mmol/L BUN 8 (7-17) mg/dL Creatinine 0.8 (0.6-1.2) mg/dL Estimated GFR > 60 ml/min BUN/Creatinine Ratio 10 % Glucose 86 (65-100) mg/dL Calcium 9.4 (8.4-10.2) mg/dL Magnesium 2.60 H (1.7-2.3) mg/dL Total Bilirubin 0.20 (0.1-1.2) mg/dL AST 28 (5-40) units/L ALT 37 (7-56) units/L Alkaline Phosphatase 83 (35-129) units/L Total Creatine Kinase 152 H (30-135) units/L Troponin T < 0.010 (0.00-0.029) ng/mL Total Protein 6.7 (6.3-8.2) g/dL Albumin 4.5 (3.9-5) g/dL Albumin/Globulin Ratio 2.0 % TSH (0.270-4.200) mlU/mL 01/26/22 Range/Units 12:05 WBC (4.5-11.0) K/mm3 RBC (3.65-5.03) M/mm3 Hgb (10.1-14.3) gm/dl Hct (30.3-42.9) % MCV (79-97) fl MCH (28-32) pg MCHC (30-34) % RDW (13.2-15.2) % Plt Count (140-440) K/mm3 Lymph % (Auto) (13.4-35.0) % [place] % (Auto) (0.0-7.3) % Eos % (Auto) (0.0-4.3) % Baso % (Auto) (0.0-1.8) % Lymph # (Auto) (1.2-5.4) K/mm3 [place] # (Auto) (0.0-0.8) K/mm3 Eos # (Auto) (0.0-0.4) K/mm3 Baso # (Auto) (0.0-0.1) K/mm3 Seg Neutrophils % (40.0-70.0) % Seg Neutrophils # (1.8-7.7) K/mm3 PT (12.2-14.9) Sec. INR (0.87-1.13) Sodium (137-145) mmol/L Potassium (3.6-5.0) mmol/L Chloride (98-107) mmol/L Carbon Dioxide (22-30) mmol/L Anion Gap mmol/L BUN (7-17) mg/dL Creatinine (0.6-1.2) mg/dL Estimated GFR ml/min BUN/Creatinine Ratio % Glucose (65-100) mg/dL Calcium (8.4-10.2) mg/dL Magnesium (1.7-2.3) mg/dL Total Bilirubin (0.1-1.2) mg/dL AST (5-40) units/L ALT (7-56) units/L Alkaline Phosphatase (35-129) units/L Total Creatine Kinase (30-135) units/L Troponin T (0.00-0.029) ng/mL Total Protein (6.3-8.2) g/dL Albumin (3.9-5) g/dL Albumin/Globulin Ratio % TSH 3.230 (0.270-4.200) mlU/mL - EKG Data -: EKG Interpreted by Vt - EKG Data 01/26/22 13:09 The EKG today is interpreted at 12: 17 Sinus rhythm, 61 bpm, atrial paced, ventricular sensed, with good capture, right bundle branch block, QTC 4 3 4 ms, and motion artifact. Abnormal EKG, this is not a STEMI - Radiology Data Radiology results: pending, report reviewed, image reviewed CHEST 1 VIEW 01/26/2022 11:39 AM INDICATION / CLINICAL INFORMATION: Syncope. COMPARISON: 06/02/2017 FINDINGS: SUPPORT DEVICES: Cardiac pacemaker leads appear appropriately positioned. HEART / MEDIASTINUM: No significant abnormality. LUNGS / PLEURA: No significant pulmonary or pleural abnormality. No pneumothorax. ADDITIONAL FINDINGS: No significant additional findings. IMPRESSION: 1. No acute findings. Signer Name: Augustine Casanova MD Signed: 01/26/2022 11:19 AM Workstation Name: [id number] XR knee 3V RT INDICATION: fall right leg pain. COMPARISON: None available. FINDINGS: There is advanced right tricompartmental osteoarthritis with a small joint effusion. There is no appreciable fracture or subluxation. Signer Name: Augustine Casanova MD Signed: 01/26/2022 11:20 AM Workstation Name: [email or web address] XR hip 2-3V RT INDICATION: fall irght hip pain. COMPARISON: None available. FINDINGS: There is no acute fracture or subluxation. There is mild bilateral hip DJD. Signer Name: Augustine Casanova MD Signed: 01/26/2022 11:20 AM Workstation Name: [id number] SCAN OF THE HEAD: INDICATION / CLINICAL INFORMATION: 86 years Female; Syncope. TECHNIQUE: Routine CT head without contrast. All CT scans at this location are performed using CT dose reduction for ALARA by means of automated exposure control. COMPARISON: CT scan of the head from 01/11/2011 FINDINGS: BRAIN / INTRACRANIAL CONTENTS: No acute hemorrhage, mass effect, midline shift, hydrocephalus, or acute, large territorial infarct. No chronic infarct or focal atrophy. Normal brain volume and ventricular/sulcal size for age. Confluent periventricular low-attenuation areas due to chronic small vessel disease; this has progressed since the last CT scan CRANIOCERVICAL JUNCTION: No significant abnormality. ORBITS: No significant abnormality of visualized orbits. SINUSES / MASTOIDS: No significant abnormality of the visualized paranasal sinuses or mastoid air cells. ADDITIONAL FINDINGS: Empty sella IMPRESSION: No acute focal parenchymal lesion Signer Name: Ирина Mast MD Signed: 01/26/2022 12:31 PM Workstation Name: [id number] CT PELVIS WITHOUT CONTRAST INDICATION / CLINICAL INFORMATION: fall right hip pain. TECHNIQUE: Axial CT images were obtained through the pelvis without contrast. Coronal and sagittal 2-D reconstruction images were produced. All CT scans at this location are performed using CT dose reduction for ALARA by means of automated exposure control. COMPARISON: None available. FINDINGS: BONES: Subtle, nondisplaced buckle fracture of the right sacral ala. No other fracture of the bony pelvis or right hip. No osseous lesion. HIP JOINTS: Mild bilateral hip degenerative arthrosis. SACROILIAC JOINTS: Mild bilateral degenerative arthrosis. SOFT TISSUES: No significant abnormality. LOWER LUMBAR SPINE: No significant abnormality. SOFT TISSUES WITHIN PELVIS: No acute findings. ADDITIONAL FINDINGS: None. IMPRESSION: 1. Subtle, nondisplaced buckle fracture of the right sacral ala. No other fracture of the bony pelvis or right hip. Signer Name: Hernan Santos MD Signed: 01/26/2022 2:33 PM Workstation Name: [id number] Critical care attestation.: If time is entered above; I have spent that time in minutes in the direct care of this critically ill patient, excluding procedure time. ED Disposition Clinical Impression: Syncope, Right hip pain, Right leg pain, Cardiac pacemaker in situ, Arthritis Disposition: 09 ADMITTED INPATIENT Is pt being admited?: Yes Does the pt Need Aspirin: No Condition: Good
[2022-01-26 12:20] LABS: Basophils % (Auto) 0.6 % (0.0-1.8); Eosinophils # (Auto) 0.1 K/mm3 (0.0-0.4); Eosinophils % (Auto) 2.1 % (0.0-4.3); Hematocrit 44.4 % (30.3-42.9); Hemoglobin 14.8 gm/dl (10.1-14.3); Lymphocytes # (Auto) 1.1 K/mm3 (1.2-5.4); Mean Corpuscular HGB Conc 33 % (30-34); Mean Corpuscular Volume 96 fl (79-97); Monocytes # (Auto) 0.9 K/mm3 (0.0-0.8); Platelet Count 274 K/mm3 (140-440); Red Blood Count 4.64 M/mm3 (3.65-5.03); Red Cell Distribution Width 12.6 % (13.2-15.2)
--- NOTE | 2022-01-26 12:23 | XRay Report ---
CHEST 1 VIEW 01/26/2022 11:39 AM INDICATION / CLINICAL INFORMATION: Syncope. COMPARISON: 06/02/2017 FINDINGS: SUPPORT DEVICES: Cardiac pacemaker leads appear appropriately positioned. HEART / MEDIASTINUM: No significant abnormality. LUNGS / PLEURA: No significant pulmonary or pleural abnormality. No pneumothorax. ADDITIONAL FINDINGS: No significant additional findings. IMPRESSION: 1. No acute findings. Signer Name: Augustine Casanova MD Signed: 01/26/2022 12:19 PM Workstation Name: [email or web address]
--- NOTE | 2022-01-26 12:24 | XRay Report ---
XR knee 3V RT INDICATION: fall right leg pain. COMPARISON: None available. FINDINGS: There is advanced right tricompartmental osteoarthritis with a small joint effusion. There is no appr eciable fracture or subluxation. Signer Name: Augustine Casanova MD Signed: 01/26/2022 12:20 PM Workstation Name: [email or web address]
--- NOTE | 2022-01-26 12:25 | XRay Report ---
XR hip 2-3V RT INDICATION: fall irght hip pain. COMPARISON: None available. FINDINGS: There is no acute fracture or subluxation. There is mild bilateral hip DJD. Signer Name: Augustine Casanova MD Signed: 01/26/2022 12:20 PM Workstation Name: [email or web address]
[2022-01-26 12:29] LABS: INR 0.85 (0.87-1.13)
[2022-01-26 12:39] LABS: Alanine Aminotransferase 37 units/L (7-56); Albumin 4.5 g/dL (3.9-5); BUN/Creatinine Ratio 10; Blood Urea Nitrogen 8 mg/dL (7-17); Calcium 9.4 mg/dL (8.4-10.2); Hemolysis Index 24
--- NOTE | 2022-01-26 13:35 | Cat Scan Report ---
NONENHANCED CT SCAN OF THE HEAD: INDICATION / CLINICAL INFORMATION: 86 years Female; Syncope. TECHNIQUE: Routine CT head without contrast. All CT scans at this location are performed using CT dos e reduction for ALARA by means of automated exposure control. COMPARISON: CT scan of the head from 01/11/2011 FINDINGS: BRAIN / INTRACRANIAL CONTENTS: No acute hemorrhage, mass effect, midline shift, hydrocephalus, or acu te, large territorial infarct. No chronic infarct or focal atrophy. Normal brain volume and ventricul ar/sulcal size for age. Confluent periventricular low-attenuation areas due to chronic small vessel d isease; this has progressed since the last CT scan CRANIOCERVICAL JUNCTION: No significant abnormality. ORBITS: No significant abnormality of visualized orbits. SINUSES / MASTOIDS: No significant abnormality of the visualized paranasal sinuses or mastoid air beckie ls. ADDITIONAL FINDINGS: Empty sella IMPRESSION: No acute focal parenchymal lesion Signer Name: Ирина Mast MD Signed: 01/26/2022 1:31 PM Workstation Name: [id number]
[2022-01-26] MEDS ORDERED: MORPHINE 2 MG/1 ML INJ IV PRN (15:00)
[2022-01-26] MEDS ORDERED: ONDANSETRON 4 MG/2 ML INJ IV PRN (15:00)
[2022-01-26] MEDS ORDERED: SODIUM CHLORIDE 0.9% 1000 ML 1,000 ML IV SCH (15:00)
[2022-01-26] MEDS ORDERED: oxyCODONE /ACETAMINOPHEN 5-325MG TAB PO PRN (15:00)
--- NOTE | 2022-01-26 15:00 | History and Physical Report ---
History of Present Illness Date of examination: 01/26/22 Date of admission: January 26, 2022 Chief complaint: Passed out while trying to get up and start walking with the help of a walker History of present illness: 86-year-old female with history of hypothyroidism, hypertension, arthritis and glaucoma was trying to get up from sitting posture and walk with the help of walker. She felt lightheaded and passed out. Fell to the ground. Passed out for few seconds up to a minute. No seizures. No chest pain. Patient landed on her right side. Patient blood pressure medications were recently decreasing dosage. Patient cannot elaborate on the dosages and remains of the medications. Patient is on valsartan 160 twice a day and amlodipine 10 mg once a day. No chest pain. - Past Medical History --Hypertension: Yes --Arthritis: Yes --Asthma: Yes --Additional medical history: osteoarthritis, pancreatitis, neuropathy, hy perthyroidism, sleep apnea, sciatica, supraventicular tachycardia - Surgical History --Cholecystectomy: Yes - Social History --Smoking Status: Never Smoker Review of Systems ROS: Stated complaint: RT HIP PAIN/GROUND LEVEL FALL Other details as noted in HPI Constitutional: denies: fever Eyes: denies: eye discharge ENT: denies: epistaxis Respiratory: denies: cough Cardiovascular: syncope. denies: chest pain Gastrointestinal: denies: abdominal pain, hematemesis, melena, hematochezia Genitourinary: denies: dysuria Musculoskeletal: joint swelling, arthralgia, myalgia Neurological: weakness (Generalized weakness). denies: numbness, paresthesias Medications and Allergies Allergies Allergy/AdvReac Type Severity Reaction Status Date / Time No Known Allergies Allergy Unverified 01/26/22 09:51 Home Medications Medication Instructions Recorded Confirmed Last Taken Type Albuterol Mdi (or & Nicu Only) 2 puff IH QID PRN 06/02/17 06/02/17 Unknown History [ProAir HFA Inhaler] Aspirin 81 mg PO QDAY 06/02/17 06/02/17 Unknown History Calcium Carbonate [Calcium] 500 mg PO QDAY 06/02/17 06/02/17 Unknown History Fluticasone [Flonase] 1 spray NS QDAY 06/02/17 06/02/17 Unknown History Multivitamin Tab [Multiple Vitamin 1 each PO QDAY 06/02/17 06/02/17 Unknown History TAB (Theragran)] Potassium Chloride [K-Dur] 10 meq PO QDAY 06/02/17 06/02/17 Unknown History Vit C/Ascorbate Calcium,Sodium 500 mg PO QDAY 06/02/17 06/02/17 Unknown History [Vitamin C 500 mg/15 ml Liquid] Levothyroxine [Synthroid] 88 mcg PO QAM@0600 tablet 06/05/17 Unknown Rx Valsartan [Diovan] 160 mg PO BID #60 tablet 06/05/17 Unknown Rx amLODIPine 10 mg PO QDAY #30 tablet 06/05/17 Unknown Rx Exam - Constitutional Vitals: Temp Pulse Resp BP Pulse Ox 98.9 F 74 18 160/61 99 01/26/22 11:03 01/26/22 12:46 01/26/22 12:46 01/26/22 12:46 01/26/22 12:46 General appearance: Present: no acute distress, well-nourished - EENT Eyes: Present: PERRL ENT: hearing intact, clear oral mucosa - Neck Neck: Present: supple, normal ROM - Respiratory Respiratory effort: normal Respiratory: bilateral: CTA - Cardiovascular Heart rate: 78 Rhythm: regular Heart Sounds: Present: S1 & S2. Absent: rub, click - Extremities Extremities: pulses symmetrical, No edema Peripheral Pulses: within normal limits - Abdominal General gastrointestinal: Present: soft, non-tender, non-distended, normal bowel sounds Female genitourinary: Present: normal - Integumentary Integumentary: Present: clear, warm, dry - Musculoskeletal Musculoskeletal: gait normal, strength equal bilaterally - Psychiatric Psychiatric: appropriate mood/affect, intact judgment & insight - Neurologic Neurologic: CNII-XII intact, moves all extremities HEART Score - HEART Score History: Moderately suspicious Age: > 65 Risk factors: 1-2 risk factors Troponin: Troponin T < 0.010 ng/mL (0.00-0.029) 01/26/22 12:05 Troponin: < normal limit - Critical Actions Critical Actions: 4-6 pts:12-16.6% risk of adverse cardiac event. Should be admitted Results - Labs CBC & Chem 7: 01/27/22 03:26 01/27/22 03:26 Labs: Laboratory Last Values WBC 6.6 K/mm3 (4.5-11.0) 01/26/22 12:05 RBC 4.64 M/mm3 (3.65-5.03) 01/26/22 12:05 Hgb 14.8 gm/dl (10.1-14.3) H 01/26/22 12:05 Hct 44.4 % (30.3-42.9) H 01/26/22 12:05 MCV 96 fl (79-97) 01/26/22 12:05 MCH 32 pg (28-32) 01/26/22 12:05 MCHC 33 % (30-34) 01/26/22 12:05 RDW 12.6 % (13.2-15.2) L 01/26/22 12:05 Plt Count 274 K/mm3 (140-440) 01/26/22 12:05 Lymph % (Auto) 16.0 % (13.4-35.0) 01/26/22 12:05 [place] % (Auto) 13.0 % (0.0-7.3) H 01/26/22 12:05 Eos % (Auto) 2.1 % (0.0-4.3) 01/26/22 12:05 Baso % (Auto) 0.6 % (0.0-1.8) 01/26/22 12:05 Lymph # (Auto) 1.1 K/mm3 (1.2-5.4) L 01/26/22 12:05 [place] # (Auto) 0.9 K/mm3 (0.0-0.8) H 01/26/22 12:05 Eos # (Auto) 0.1 K/mm3 (0.0-0.4) 01/26/22 12:05 Baso # (Auto) 0.0 K/mm3 (0.0-0.1) 01/26/22 12:05 Seg Neutrophils % 68.3 % (40.0-70.0) 01/26/22 12:05 Seg Neutrophils # 4.5 K/mm3 (1.8-7.7) 01/26/22 12:05 PT 12.5 Sec. (12.2-14.9) 01/26/22 12:05 INR 0.85 (0.87-1.13) L 01/26/22 12:05 Sodium 136 mmol/L (137-145) L 01/26/22 12:05 Potassium 4.1 mmol/L (3.6-5.0) 01/26/22 12:05 Chloride 99.5 mmol/L (98-107) 01/26/22 12:05 Carbon Dioxide 23 mmol/L (22-30) 01/26/22 12:05 Anion Gap 18 mmol/L 01/26/22 12:05 BUN 8 mg/dL (7-17) 01/26/22 12:05 Creatinine 0.8 mg/dL (0.6-1.2) 01/26/22 12:05 Estimated GFR > 60 ml/min 01/26/22 12:05 BUN/Creatinine Ratio 10 % 01/26/22 12:05 Glucose 86 mg/dL (65-100) 01/26/22 12:05 Calcium 9.4 mg/dL (8.4-10.2) 01/26/22 12:05 Magnesium 2.60 mg/dL (1.7-2.3) H 01/26/22 12:05 Total Bilirubin 0.20 mg/dL (0.1-1.2) 01/26/22 12:05 AST 28 units/L (5-40) 01/26/22 12:05 ALT 37 units/L (7-56) 01/26/22 12:05 Alkaline Phosphatase 83 units/L (35-129) 01/26/22 12:05 Total Creatine Kinase 152 units/L (30-135) H 01/26/22 12:05 Troponin T < 0.010 ng/mL (0.00-0.029) 01/26/22 12:05 Total Protein 6.7 g/dL (6.3-8.2) 01/26/22 12:05 Albumin 4.5 g/dL (3.9-5) 01/26/22 12:05 Albumin/Globulin Ratio 2.0 % 01/26/22 12:05 TSH 3.230 mlU/mL (0.270-4.200) 01/26/22 12:05 Short CBC 01/26/22 01/27/22 Range/Units 12:05 03:26 WBC 6.6 5.1 (4.5-11.0) K/mm3 Hgb 14.8 H 13.8 (10.1-14.3) gm/dl Hct 44.4 H 41.5 (30.3-42.9) % Plt Count 274 260 (140-440) K/mm3 BMP 01/26/22 01/27/22 12:05 03:26 Sodium 136 L 138 Potassium 4.1 4.3 Chloride 99.5 102.9 Carbon Dioxide 23 22 BUN 8 7 Creatinine 0.8 0.7 Glucose 86 100 Calcium 9.4 9.1 Cardiac Enzymes 01/26/22 Range/Units 12:05 Total Creatine Kinase 152 H (30-135) units/L Troponin T < 0.010 (0.00-0.029) ng/mL Liver Function 01/26/22 01/27/22 Range/Units 12:05 03:26 Total Bilirubin 0.20 0.20 (0.1-1.2) mg/dL AST 28 27 (5-40) units/L ALT 37 38 (7-56) units/L Alkaline Phosphatase 83 73 (35-129) units/L Albumin 4.5 4.0 (3.9-5) g/dL Urine 01/26/22 Range/Units 13:00 Urine Color Straw (Yellow) Urine pH 7.0 (5.0-7.0) Ur Specific [place] 1.006 (1.003-1.030) Urine Protein <15 mg/dl (Negative) mg/dL Urine Glucose (UA) >=500 (Negative) mg/dL Assessment and Plan Advance Directives: Yes (Full code) VTE prophylaxis?: Chemical Plan of care discussed with patient/family: Yes - Patient Problems (1) Syncope and collapse Current Visit: Yes Status: Acute Plan to address problem: Probably orthostatic Orthostatic vitals requested Valsartan to be decreased from 160 twice a day to 160 once a day Syncope work-up Echocardiogram for valve function and ejection fraction Carotid duplex scan (2) Hypertension Current Visit: Yes Status: Chronic Qualifiers: Hypertension type: primary hypertension Qualified Code(s): I10 - Essential (primary) hypertension Plan to address problem: Valsartan decreased to 160 mg once a day from twice a day (3) Hypothyroidism Current Visit: Yes Status: Chronic Qualifiers: Hypothyroidism type: acquired Qualified Code(s): E03.9 - Hypothyroidism, unspecified Plan to address problem: Continue Synthroid and check TSH (4) DVT prophylaxis Current Visit: Yes Status: Acute Plan to address problem: On anticoagulation GI prophylaxis (5) Advance care planning Current Visit: Yes Status: Acute Plan to address problem: Disease education conducted, care plan discussed, diagnosis discussed, prognosis discussed. Patient is full code. Patient acknowledges understanding and agree ment with care plan. +30 minutes.
[2022-01-26] MEDS ORDERED: ALBUTEROL 8.5 GM MDI INHALATION IH PRN (15:29)
[2022-01-26] MEDS ORDERED: [UNRECOGNIZED DRUG - OTHER] PO SCH (15:30)
[2022-01-26] MEDS ORDERED: ASCORBATE CALCIUM SODIUM PO SCH (15:30)
[2022-01-26] MEDS ORDERED: VIT C PO SCH (15:30)
--- NOTE | 2022-01-26 15:38 | Cat Scan Report ---
CT PELVIS WITHOUT CONTRAST INDICATION / CLINICAL INFORMATION: fall right hip pain. TECHNIQUE: Axial CT images were obtained through the pelvis without contrast. Coronal and sagittal 2- D reconstruction images were produced. All CT scans at this location are performed using CT dose redu ction for ALARA by means of automated exposure control. COMPARISON: None available. FINDINGS: BONES: Subtle, nondisplaced buckle fracture of the right sacral ala. No other fracture of the bony pe lvis or right hip. No osseous lesion. HIP JOINTS: Mild bilateral hip degenerative arthrosis. SACROILIAC JOINTS: Mild bilateral degenerative arthrosis. SOFT TISSUES: No significant abnormality. LOWER LUMBAR SPINE: No significant abnormality. SOFT TISSUES WITHIN PELVIS: No acute findings. ADDITIONAL FINDINGS: None. IMPRESSION: 1. Subtle, nondisplaced buckle fracture of the right sacral ala. No other fracture of the bony pelvis or right hip. Signer Name: Hernan Santos MD Signed: 01/26/2022 3:33 PM Workstation Name: [id number]
[2022-01-26] MEDS ORDERED: ALBUTEROL 2.5 MG/3 ML NEBU IH PRN (15:57)
--- NOTE | 2022-01-26 16:19 | Vascular Lab Report ---
DUPLEX DOPPLER ULTRASOUND CAROTID, BILATERAL INDICATION / CLINICAL INFORMATION: syncope. COMPARISON: None available. FINDINGS: RIGHT CAROTID: - PLAQUE ESTIMATE (%): < 50% - CCA velocity: 68.1 cm/sec. - ICA peak systolic velocity: 104.1 cm/sec. - ICA/CCA PSV Ratio: 1.53 Right Vertebral Artery: Antegrade flow. LEFT CAROTID: - PLAQUE ESTIMATE: < 50% - CCA velocity: 83.3 cm/sec. - ICA peak systolic velocity: 115.0 cm/sec. - ICA/CCA PSV Ratio: 1.38 Left Vertebral Artery: Antegrade flow. IMPRESSION: 1. Right Internal Carotid Artery: Less than 50% diameter stenosis. 2. Left Internal Carotid Artery: Less than 50% diameter stenosis. Velocity criteria are extrapolated from diameter data as defined by the Society of Radiologists in Ul trasound Consensus Conference, Radiology 2003; 229;340-346. NO STENOSIS (NORMAL) * Plaque = none; ICA PSV < 125 cm/sec; ICA/CCA PSV Ratio < 2.0 <50% STENOSIS * Plaque < 50%; ICA PSV < 125 cm/sec; ICA/CCA PSV Ratio < 2.0 50-69% STENOSIS * Plaque > 50%; ICA PSV = 125-230 cm/sec; ICA/CCA PSV Ratio = 2.0-4.0 >70% BUT <100% STENOSIS * Plaque > 50%; ICA PSV > 230 cm/sec; ICA/CCA PSV Ratio > 4.0 NEAR OCCLUSION * Plaque = visible lumen; ICA PSV = high/low/none; ICA/CCA PSV Ratio = variable TOTAL OCCLUSION * Plaque = no lumen; ICA PSV = none; ICA/CCA PSV Ratio = N/A Signer Name: Greg Parrish MD Signed: 01/26/2022 4:15 PM Workstation Name: [email or web address]
[2022-01-26] MEDS: ASPIRIN 81 MG TAB CHEW PO SCH (18:37)
[2022-01-26] MEDS: ACETAMINOPHEN 325 MG TAB PO PRN (18:38)
[2022-01-26] MEDS: VALSARTAN 160MG TAB PO SCH ×2 (18:38→22:10)
[2022-01-26] MEDS: HEPARIN 5,000 UNIT/1 ML VIAL SUB-Q SCH ×2 (18:41→22:10)
[2022-01-26] MEDS: POTASSIUM CHLORIDE ER 10 MEQ TAB PO SCH (20:32)
[2022-01-26] MEDS: CALCIUM CARBONATE 1250 MG TAB PO SCH (20:32)
[2022-01-26 21:20] LABS: Bacteria,Urine 1+ /HPF (Negative); Bilirubin,Urine NEG (Negative); Blood,Urine NEG (Negative); Color,Urine Straw (Yellow); Protein,Urine <15 mg/dL mg/dL (Negative); RBC,Urine < 1.0 /HPF (0.0-6.0); Urobilinogen,Urine < 2.0 mg/dL (<2.0); WBC,Urine < 1.0 /HPF (0.0-6.0)
[2022-01-27 03:46] LABS: Basophils % (Auto) 0.8 % (0.0-1.8); Eosinophils # (Auto) 0.1 K/mm3 (0.0-0.4); Eosinophils % (Auto) 2.3 % (0.0-4.3); Hematocrit 41.5 % (30.3-42.9); Hemoglobin 13.8 gm/dl (10.1-14.3); Lymphocytes # (Auto) 1.9 K/mm3 (1.2-5.4); Lymphocytes % (Auto) 37.9 % (13.4-35.0); Mean Corpuscular HGB Conc 33 % (30-34); Mean Corpuscular Volume 96 fl (79-97); Monocytes # (Auto) 0.7 K/mm3 (0.0-0.8); Monocytes % (Auto) 14.4 % (0.0-7.3); Platelet Count 260 K/mm3 (140-440); Red Blood Count 4.33 M/mm3 (3.65-5.03); Red Cell Distribution Width 12.5 % (13.2-15.2)
[2022-01-27 04:07] LABS: Alanine Aminotransferase 38 units/L (7-56); Blood Urea Nitrogen 7 mg/dL (7-17); Calcium 9.1 mg/dL (8.4-10.2); Hemolysis Index 19
[2022-01-27 04:11] LABS: BUN/Creatinine Ratio 10
[2022-01-27] MEDS: LEVOTHYROXINE 88 MCG TAB PO SCH (06:28)
[2022-01-27] MEDS: ASPIRIN 81 MG TAB CHEW PO SCH (09:14)
[2022-01-27] MEDS: VALSARTAN 160MG TAB PO SCH (09:15)
[2022-01-27] MEDS: HEPARIN 5,000 UNIT/1 ML VIAL SUB-Q SCH ×2 (09:15→21:04)
[2022-01-27] MEDS: MULTIVITAMINS ,THERAPEUTIC TAB PO SCH (09:15)
[2022-01-27] MEDS: POTASSIUM CHLORIDE ER 10 MEQ TAB PO SCH (09:16)
[2022-01-27] MEDS: ASCORBIC ACID 500 MG TAB PO SCH (09:17)
[2022-01-27] MEDS: amLODIPine 10 MG TAB PO SCH (09:20)
[2022-01-27] MEDS: CALCIUM CARBONATE 1250 MG TAB PO SCH (09:20)
--- NOTE | 2022-01-27 09:44 | Electrocardiograph Report ---
[facility] Test Date: 2022-01-26 Test Time: 12:17:31 Pat Name: VIJAY MARTIN Department: Room: A466 Gender: F [employer]: [id number] : 1935 Requested By: ALISSA CLARK Order Number: [id number] Reading MD: Freeman Wells Measurements Intervals [place] Rate: 61 P: 75 MN: 148 QRS: 88 QRSD: 125 T: 55 QT: 429 QTc: 434 Interpretive Statements Sinus rhythm Probable left atrial enlargement Right bundle branch block No previous ECG available for comparison Electronically Signed On 01-27-2022 9:44:27 EDT by Freeman Wells
--- NOTE | 2022-01-27 15:01 | Progress Note ---
Assessment and Plan Assessment and plan: #Syncoperesolved #Hypotension secondary to medications High likelihood that patient syncope is orthostatic in nature Reduced dose of valsartan from 160 mg twice daily to 160 mg daily Carotid Dopplers unremarkable for stenosis. TTE performed to evaluate cardiac function; pending read Counseled patient on changes to antihypertensives. Patient and her daughter expressed understanding. #Ground-level fall #Nondisplaced buckle fracture of right sacral ala Fracture visualized on CT pelvis Unremarkable CT head noncontrast, pelvis x-ray, knee x-ray Orthopedic surgery informed; conservative management without surgical intervention Patient will follow with primary care provider #Hypertension - home medications: Amlodipine 10 mg daily and valsartan 160 mg twice daily - current medications: Amlodipine 10 mg daily and valsartan 160 mg daily - SBP goal <160 and DBP goal <90 while inpatient - continue to monitor #Hypothyroidism TSH 2.4 Continue home levothyroxine 88 mcg every morning #Advanced care planning -Disease education conducted, care plan discussed, diagnoses discussed, prognosis discussed, and patient acknowledges understanding with care plan -Time: +30 min #Discharge planning - Patient is pending final read of TTE - Case management has been made aware. - Discharge is tentatively tomorrow Disposition Plan: Pending discharge home tomorrow Total Time Spent with Patient (Minutes): 45 minutes History Interval history: No acute events overnight. Hospitalist Physical - Constitutional Vitals: Temp Pulse Resp BP Pulse Ox 97.7 F 60 16 166/76 99 01/27/22 12:07 01/27/22 12:07 01/27/22 03:20 01/27/22 12:07 01/27/22 12:07 General appearance: Present: no acute distress, well-nourished - EENT Eyes: Present: PERRL, EOM intact ENT: hearing intact, clear oral mucosa, edentulous (Dentures) - Neck Neck: Present: supple, normal ROM - Respiratory Respiratory effort: normal Respiratory: bilateral: CTA - Cardiovascular Rhythm: regular Heart Sounds: Present: S1 & S2 - Extremities Extremities: no ischemia, pulses intact, pulses symmetrical, No edema, normal temperature, normal color, Full ROM Peripheral Pulses: within normal limits - Abdominal General gastrointestinal: soft, non-tender, non-distended, normal bowel sounds - Integumentary Integumentary: Present: clear, warm, dry - Psychiatric Psychiatric: appropriate mood/affect, intact judgment & insight, memory intact, cooperative - Neurologic Neurologic: CNII-XII intact, moves all extremities - Allied Health Allied health notes reviewed: nursing HEART Score - HEART Score Age: > 65 Risk factors: 1-2 risk factors Troponin: Troponin T < 0.010 ng/mL (0.00-0.029) 01/26/22 12:05 Troponin: < normal limit - Critical Actions Critical Actions: 4-6 pts:12-16.6% risk of adverse cardiac event. Should be admitted Results - Labs CBC & Chem 7: 01/27/22 03:26 01/27/22 03:26 Labs: Laboratory Last Values WBC 5.1 K/mm3 (4.5-11.0) 01/27/22 03:26 RBC 4.33 M/mm3 (3.65-5.03) 01/27/22 03:26 Hgb 13.8 gm/dl (10.1-14.3) 01/27/22 03:26 Hct 41.5 % (30.3-42.9) 01/27/22 03:26 MCV 96 fl (79-97) 01/27/22 03:26 MCH 32 pg (28-32) 01/27/22 03:26 MCHC 33 % (30-34) 01/27/22 03:26 RDW 12.5 % (13.2-15.2) L 01/27/22 03:26 Plt Count 260 K/mm3 (140-440) 01/27/22 03:26 Lymph % (Auto) 37.9 % (13.4-35.0) H 01/27/22 03:26 [place] % (Auto) 14.4 % (0.0-7.3) H 01/27/22 03:26 Eos % (Auto) 2.3 % (0.0-4.3) 01/27/22 03:26 Baso % (Auto) 0.8 % (0.0-1.8) 01/27/22 03:26 Lymph # (Auto) 1.9 K/mm3 (1.2-5.4) 01/27/22 03:26 [place] # (Auto) 0.7 K/mm3 (0.0-0.8) 01/27/22 03:26 Eos # (Auto) 0.1 K/mm3 (0.0-0.4) 01/27/22 03:26 Baso # (Auto) 0.0 K/mm3 (0.0-0.1) 01/27/22 03:26 Seg Neutrophils % 44.6 % (40.0-70.0) 01/27/22 03:26 Seg Neutrophils # 2.3 K/mm3 (1.8-7.7) 01/27/22 03:26 PT 12.5 Sec. (12.2-14.9) 01/26/22 12:05 INR 0.85 (0.87-1.13) L 01/26/22 12:05 Sodium 138 mmol/L (137-145) 01/27/22 03:26 Potassium 4.3 mmol/L (3.6-5.0) 01/27/22 03:26 Chloride 102.9 mmol/L (98-107) 01/27/22 03:26 Carbon Dioxide 22 mmol/L (22-30) 01/27/22 03:26 Anion Gap 17 mmol/L 01/27/22 03:26 BUN 7 mg/dL (7-17) 01/27/22 03:26 Creatinine 0.7 mg/dL (0.6-1.2) 01/27/22 03:26 Estimated GFR > 60 ml/min 01/27/22 03:26 BUN/Creatinine Ratio 10 % 01/27/22 03:26 Glucose 100 mg/dL (65-100) 01/27/22 03:26 Calcium 9.1 mg/dL (8.4-10.2) 01/27/22 03:26 Magnesium 2.60 mg/dL (1.7-2.3) H 01/26/22 12:05 Total Bilirubin 0.20 mg/dL (0.1-1.2) 01/27/22 03:26 AST 27 units/L (5-40) 01/27/22 03:26 ALT 38 units/L (7-56) 01/27/22 03:26 Alkaline Phosphatase 73 units/L (35-129) 01/27/22 03:26 Total Creatine Kinase 152 units/L (30-135) H 01/26/22 12:05 Troponin T < 0.010 ng/mL (0.00-0.029) 01/26/22 12:05 Total Protein 6.0 g/dL (6.3-8.2) L 01/27/22 03:26 Albumin 4.0 g/dL (3.9-5) 01/27/22 03:26 Albumin/Globulin Ratio 2.0 % 01/27/22 03:26 TSH 2.400 mlU/mL (0.270-4.200) 01/27/22 07:21 Urine Color Straw (Yellow) 01/26/22 13:00 Urine Turbidity Clear (Clear) 01/26/22 13:00 Urine pH 7.0 (5.0-7.0) 01/26/22 13:00 Ur Specific [place] 1.006 (1.003-1.030) 01/26/22 13:00 Urine Protein <15 mg/dl mg/dL (Negative) 01/26/22 13:00 Urine Glucose (UA) >=500 mg/dL (Negative) 01/26/22 13:00 Urine Ketones Neg mg/dL (Negative) 01/26/22 13:00 Urine Blood Neg (Negative) 01/26/22 13:00 Urine Nitrite Neg (Negative) 01/26/22 13:00 Urine Bilirubin Neg (Negative) 01/26/22 13:00 Urine Urobilinogen < 2.0 mg/dL (<2.0) 01/26/22 13:00 Ur Leukocyte Esterase Neg (Negative) 01/26/22 13:00 Urine WBC (Auto) < 1.0 /HPF (0.0-6.0) 01/26/22 13:00 Urine RBC (Auto) < 1.0 /HPF (0.0-6.0) 01/26/22 13:00 U Epithel Cells (Auto) 1.0 /HPF (0-13.0) 01/26/22 13:00 Urine Bacteria (Auto) 1+ /HPF (Negative) 01/26/22 13:00 Anaya/IV: Voiding Method External Female Catheter Active Medications - Current Medications Current Medications: Generic Name Dose Route Start Last Admin Trade Name Freq PRN Reason Stop Dose Admin Acetaminophen 650 mg 01/26/22 15:00 01/26/22 18:38 Acetaminophen 325 Mg Tab PO 650 mg Q4H PRN Administration Pain MILD(1-3)/Fever >100.5/FLORIAN Albuterol 2.5 mg 01/26/22 15:57 Albuterol 2.5 Mg/3 Ml Nebu IH Q4HRT PRN Shortness Of Breath Amlodipine Besylate 10 mg 01/26/22 18:00 01/27/22 09:20 Amlodipine 10 Mg Tab PO 10 mg QDAY EUNICE Administration Ascorbic Acid 500 mg 01/27/22 10:00 01/27/22 09:17 Ascorbic Acid 500 Mg Tab PO 500 mg QDAY EUNICE Administration Aspirin 81 mg 01/26/22 16:00 01/27/22 09:14 Aspirin 81 Mg Tab Chew PO 81 mg QDAY EUNICE Administration Calcium Carbonate/Glycine 500 mg 01/26/22 18:00 01/27/22 09:20 Calcium Carbonate 1250 Mg Tab PO 500 mg QDAY EUNICE Administration Fluticasone Propionate 50 mcg 01/26/22 16:00 Fluticasone Propionate Nasal [place] 16 Gm NS QDAY EUNICE Heparin Sodium (Porcine) 5,000 unit 01/26/22 16:00 01/27/22 09:15 Heparin 5,000 Unit/1 Ml Vial SUB-Q 5,000 unit Q12HR EUNICE Administration Levothyroxine Sodium 88 mcg 01/27/22 06:00 01/27/22 06:28 Levothyroxine 88 Mcg Tab PO 88 mcg QAM@0600 EUNICE Administration Morphine Sulfate 2 mg 01/26/22 15:00 Morphine 2 Mg/1 Ml Inj IV Q4H PRN Pain, Moderate (4-6) Multivitamins 1 each 01/27/22 10:00 01/27/22 09:15 Multivitamins ,Therapeutic Tab PO 1 each QDAY EUNICE Administration Ondansetron HCl 4 mg 01/26/22 15:00 Ondansetron 4 Mg/2 Ml Inj IV Q8H PRN Nausea And Vomiting Oxycodone/Acetaminophen 1 tab 01/26/22 15:00 Oxycodone /Acetaminophen 5-325mg Tab PO Q6H PRN Pain, Moderate (4-6) Potassium Chloride 10 meq 01/26/22 18:00 01/27/22 09:16 Potassium Chloride Er 10 Meq Tab PO 10 meq QDAY EUNICE Administration Sodium Chloride 10 ml 01/26/22 22:00 01/27/22 09:16 Sodium Chloride 0.9% 10 Ml Flush Syringe IV 10 ml BID EUNICE Administration Sodium Chloride 10 ml 01/26/22 15:00 Sodium Chloride 0.9% 10 Ml Flush Syringe IV PRN PRN LINE FLUSH Valsartan 160 mg 01/27/22 10:00 01/27/22 09:15 Valsartan 160mg Tab PO 160 mg QDAY EUNICE Administration
[2022-01-27] MEDS: FLUTICASONE PROPIONATE NASAL SPRAY 16 GM NS SCH (16:35)
[2022-01-28] MEDS: LEVOTHYROXINE 88 MCG TAB PO SCH (06:10)
[2022-01-28] MEDS: FLUTICASONE PROPIONATE NASAL SPRAY 16 GM NS SCH ×2 (10:20→10:21)
[2022-01-28] MEDS: ACETAMINOPHEN 325 MG TAB PO PRN (10:28)
[2022-01-28] MEDS: VALSARTAN 160MG TAB PO SCH (10:30)
[2022-01-28] MEDS: MULTIVITAMINS ,THERAPEUTIC TAB PO SCH (10:31)
[2022-01-28] MEDS: amLODIPine 10 MG TAB PO SCH (10:31)
[2022-01-28] MEDS: CALCIUM CARBONATE 1250 MG TAB PO SCH (10:32)
[2022-01-28] MEDS: HEPARIN 5,000 UNIT/1 ML VIAL SUB-Q SCH (10:32)
[2022-01-28] MEDS: ASPIRIN 81 MG TAB CHEW PO SCH (10:32)
[2022-01-28] MEDS: ASCORBIC ACID 500 MG TAB PO SCH (10:32)
[2022-01-28] MEDS: POTASSIUM CHLORIDE ER 10 MEQ TAB PO SCH (10:32)
--- NOTE | 2022-01-28 11:59 | Discharge Summary ---
Providers - Providers Date of Admission: 01/26/22 15:01 Date of discharge: 01/28/22 Attending physician: BEN REID MD 01/27/22 08:10 Physical Therapy Evaluation and Treat [CONS] Routine Comment: Reason For Exam: Evaluate s/p ground level fall Primary care physician: MYSQL DATABASE ADMINISTRATOR Hospitalization Reason for admission: Orthostatic syncope, hypotension secondary to medications Condition: Good Pertinent studies: Reviewed. Procedures: None. Hospital course: Patient is a 86-year-old female past medical history of hypothyroidism, hypertension, arthritis, and glaucoma who presented after ground-level fall secondary to syncope. The patient described feeling lightheaded and passing out; however, the patient cannot give an exact timeframe for how long she was "out". Patient described her antihypertensive recently being changed. On p resentation to the ED, patient was hemodynamically stable. Patient underwent significant imaging that was found to be unremarkable: CT head noncontrast, x- ray of pelvis, and knee x-ray. CT pelvis visualized a nondisplaced buckle fracture of the right sacral ala. Orthopedic surgery was contacted, and they recommended conservative management without surgical intervention. Patient was admitted for syncope work-up. Carotid ultrasounds have been unremarkable the patient's valsartan was decreased from 160 mg twice daily to 160 mg daily. Given the patient's age, she can be allowed a higher blood pressure range. This was discussed with the patient and her daughter, and they expressed understanding. Patient is medically clear for discharge. Disposition: 01 HOME / SELF CARE / HOMELESS Final Discharge Diagnosis (Prints w/discharge instructions): Orthostatic syncope, hypotension secondary to medications, ground-level fall, nondisplaced buckle fracture of right sacral ala, hypertension, hypothyroidism Time spent for discharge: 45 min Core Measure Documentation - Palliative Care Palliative Care/ Comfort Measures: Not Applicable - Core Measures Any of the following diagnoses?: none Exam - Constitutional Vitals: Temp Pulse Resp BP Pulse Ox 97.3 F L 64 18 169/75 97 01/28/22 07:47 01/28/22 11:15 01/28/22 11:15 01/28/22 10:31 01/28/22 11:15 General appearance: Present: no acute distress, well-nourished - EENT Eyes: Present: PERRL, EOM intact ENT: hearing intact, clear oral mucosa, edentulous (Dentures) - Neck Neck: Present: supple, normal ROM - Respiratory Respiratory effort: normal Respiratory: bilateral: CTA - Cardiovascular Rhythm: regular Heart Sounds: Present: S1 & S2 - Extremities Extremities: no ischemia, pulses intact, pulses symmetrical, No edema, normal temperature, normal color Peripheral Pulses: within normal limits - Abdominal General gastrointestinal: Present: soft, non-tender, non-distended, normal bowel sounds Female genitourinary: Present: deferred - Rectal Rectal Exam: deferred - Integumentary Integumentary: Present: clear, warm, dry - Musculoskeletal Musculoskeletal: generalized weakness - Psychiatric Psychiatric: appropriate mood/affect, intact judgment & insight, memory intact, cooperative - Neurologic Neurologic: CNII-XII intact, moves all extremities - Allied Health Allied health notes reviewed: nursing Plan Activity: advance as tolerated Diet: low salt Additional Instructions: Patient is a 86-year-old female past medical history of hypothyroidism, hypertension, arthritis, and glaucoma who presented after ground-level fall secondary to syncope. The patient described feeling lightheaded and passing out; however, the patient cannot give an exact timeframe for how long she was "out". Patient described her antihypertensive recently being changed. On presentation to the ED, patient was hemodynamically stable. Patient underwent significant imaging that was found to be unremarkable: CT head noncontrast, x-ray of pelvis, and knee x-ray. CT pelvis visualized a nondisplaced buckle fracture of the right sacral ala. Orthopedic surgery was contacted, and they recommended conservative management without surgical intervention. Patient was admitted for syncope work-up. Carotid ultrasounds have been unremarkable the patient's valsartan was decreased from 160 mg twice daily to 160 mg daily. Given the patient's age, she can be allowed a higher blood pressure range. This was discussed with the patient and her daughter, and they expressed understanding. Patient is medically clear for discharge. Care Plan Goals: Patient is medically clear for discharge. Assessment: Patient is a 86-year-old female past medical history of hypothyroidism, hypertension, arthritis, and glaucoma who presented after ground-level fall secondary to syncope. The patient described feeling lightheaded and passing out; however, the patient cannot give an exact timeframe for how long she was "out". Patient described her antihypertensive recently being changed. On presentation to the ED, patient was hemodynamically stable. Patient underwent significant imaging that was found to be unremarkable: CT head noncontrast, x- ray of pelvis, and knee x-ray. CT pelvis visualized a nondisplaced buckle fracture of the right sacral ala. Orthopedic surgery was contacted, and they recommended conservative management without surgical intervention. Patient was admitted for syncope work-up. Carotid ultrasounds have been unremarkable the patient's valsartan was decreased from 160 mg twice daily to 160 mg daily. Given the patient's age, she can be allowed a higher blood pressure range. This was discussed with the patient and her daughter, and they expressed understanding. Patient is medically clear for discharge. Follow up with: PRIMARY CARE, [Primary Care Provider] - 3-5 Days Prescriptions: Valsartan [Diovan] 160 mg PO DAILY #30 tablet
[2022-01-28 12:39] VITALS: BP 176/85
== END 2022-01-28 16:00 | disposition home or self-care (01) | DRG 552 ==
LOC: ED 09:23 → 4A 15:01
PROVIDERS: ADMIT Internal Medicine; ATTEND Student in an Organized Health Care Education/Training Program
DX: S32.10XA Unspecified fracture of sacrum, initial encounter for closed fracture (principal); R55 Syncope and collapse; M19.90 Unspecified osteoarthritis, unspecified site; I10 Essential (primary) hypertension; J45.909 Unspecified asthma, uncomplicated; E03.9 Hypothyroidism, unspecified; I95.2 Hypotension due to drugs; W18.39XA Other fall on same level, initial encounter; Y93.89 Activity, other specified; Y92.89 Other specified places as the place of occurrence of the external cause; Y99.8 Other external cause status; Z95.0 Presence of cardiac pacemaker; Z90.49 Acquired absence of other specified parts of digestive tract
CPT/HCPCS: 36415; 70450; 71045; 72192; 80053; 81001; 82550; 83735; 84443; 84484; 85025; 85610; 93005; 93306; 93880; 94640; 99285; G0378; C8929; J1644; J7030